=== PATIENT | female | born 1945 | race Caucasian/White ===

== ENCOUNTER 2024-06-23 02:22 | Inpatient (IN) | payer MEDICARE, SELFPAY ==
[2024-06-23] VITALS (14 sets, daily range): BP systolic 102–169; BP diastolic 41–72; PULSE 60–81; RESP 16–20; TEMP 36.7–39.6; O2SAT 81–100; BMI 22.8; BMI 26.4
--- NOTE | 2024-06-23 02:29 | XR_ITS ---
PROCEDURE INFORMATION: Exam: XR Chest Exam date and time: 06/23/2024 2:41 AM Age: 79 years old Clinical indication: Fever; Additional info: AMS fever TECHNIQUE: Imaging protocol: Radiologic exam of the chest. Views: 1 view. COMPARISON: No relevant prior studies available. FINDINGS: Lungs: Prominent lung markings/peribronchial thickening. Pleural spaces: No evidence of pleural effusion or pneumothorax. Heart/Mediastinum: Mild cardiomegaly with mild central pulmonary vascular congestion. Evidence of mediastinal surgery with sternotomy wires, prosthetic valve and CABG. Bones/joints: Chronic degenerative changes in the visualized spine. IMPRESSION: Chronic changes without evidence of an active lung parenchymal lesion.
--- NOTE | 2024-06-23 02:29 | CT_ITS ---
PROCEDURE INFORMATION: Exam: CTA Neck With Contrast Exam date and time: 06/23/2024 2:54 AM Age: 79 years old Clinical indication: Stroke-like symptoms; Altered mental status/memory loss; Additional info: Possible stroke TECHNIQUE: Imaging protocol: Computed tomographic angiography of the neck with contrast. Exam focused on the cervical segments of the vasculature. 3D rendering (Not supervised by radiologist): MIP and/or 3D reconstructed images were created by the technologist. Radiation optimization: All CT scans at this facility use at least one of these dose optimization techniques: automated exposure control; mA and/or kV adjustment per patient size (includes targeted exams where dose is matched to clinical indication); or iterative reconstruction. Contrast material: ISOVUE; Contrast volume: 80 ml; Contrast route: INTRAVENOUS (IV); COMPARISON: CT ANGIO HEAD 06/23/2024 2:54 AM FINDINGS: Thoracic Vessels: Atherosclerotic disease of the visualized aortic arch without aortic aneurysm or dissection. Calcific plaque without significant narrowing at the origin of the neck vessels. . Common Carotid Arteries: Common carotid arteries are without acute flow limiting stenosis. . Cervical Internal Carotid Arteries: Mild to moderate calcific/noncalcific plaque at the carotid bifurcation extending to the carotid bulb without acute flow-limiting stenosis of the cervical internal carotid arteries. No evidence of an aneurysm or a dissection. . Vertebral Arteries: Calcific plaque at the origin of vertebral arteries resulting in chronic narrowing without acute flow limiting stenosis. . Other Structures: Chronic degenerative changes in the visualized spine and shoulder joint(s). Ground-glass opacities, septal and peribronchial thickening in the lung apices with distal airway narrowing. Circumferential wall thickening of the cervical and visualized thoracic esophagus suggestive of reflux disease/esophagitis. IMPRESSION: Chronic atherosclerotic disease without acute flow-limiting stenosis, no occlusion, aneurysm or dissection of the carotid and vertebral arteries in the neck. REFERENCES: NASCET CRITERIA. The degree of stenosis in the cervical segment of the internal carotid artery is based on NASCET criteria. Normal is no stenosis. Mild is less than 50% stenosis. Moderate is 50-69% stenosis. Severe is 70% to 99% stenosis. Total occlusion is no detectable patent lumen.
--- NOTE | 2024-06-23 02:29 | CT_ITS ---
PROCEDURE INFORMATION: Exam: CTA Head With Contrast, Arteriography Exam date and time: 06/23/2024 2:54 AM Age: 79 years old Clinical indication: Stroke-like symptoms; Altered mental status/memory loss; Additional info: Possible stroke TECHNIQUE: Imaging protocol: Computed tomographic angiography of the head with contrast. Exam focused on the arteries. 3D rendering (Not supervised by radiologist): MIP and/or 3D reconstructed images were created by the technologist. Radiation optimization: All CT scans at this facility use at least one of these dose optimization techniques: automated exposure control; mA and/or kV adjustment per patient size (includes targeted exams where dose is matched to clinical indication); or iterative reconstruction. Contrast material: ISOVUE; Contrast volume: 80 ml; Contrast route: INTRAVENOUS (IV); COMPARISON: CT ANGIO HEAD 06/23/2024 2:54 AM FINDINGS: ANTERIOR CIRCULATION: Intracranial internal carotid arteries: Moderately advanced chronic predominantly calcific plaque in the mid-distal ICA resulting in chronic narrowing without acute flow-limiting stenosis. Middle cerebral arteries: M1, M2 and their distal visualized branches are without acute flow limiting stenosis. Anterior cerebral arteries: A1, A2 and their distal visualized branches are without acute flow limiting stenosis. Anterior communicating artery is unremarkable. . POSTERIOR CIRCULATION: Vertebral arteries: Eccentric calcific/noncalcific plaque along the wall(s) of the intracranial LEFT vertebral artery without acute flow limiting stenosis on either side. Basilar artery: The basilar artery and its visualized proximal branches are without acute flow limiting stenosis. Posterior cerebral arteries: P1, P2 and their distal visualized branches are without acute flow limiting stenosis. IMPRESSION: Chronic atherosclerotic disease without acute flow-limiting stenosis or large vessel occlusion. COMMENT: Recommend followup with MRI if persistent/new/worsening symptoms or symptoms unexplained by the current study.
--- NOTE | 2024-06-23 02:29 | CT_ITS ---
PROCEDURE INFORMATION: Exam: CT Head Without Contrast Exam date and time: 06/23/2024 2:52 AM Age: 79 years old Clinical indication: Stroke-like symptoms; Altered mental status/memory loss; Additional info: Possible stroke TECHNIQUE: Imaging protocol: Computed tomography of the head without contrast. Radiation optimization: All CT scans at this facility use at least one of these dose optimization techniques: automated exposure control; mA and/or kV adjustment per patient size (includes targeted exams where dose is matched to clinical indication); or iterative reconstruction. Other technique: STROKE PROTOCOL was implemented. COMPARISON: No relevant prior studies available. FINDINGS: Brain: Chronic microvascular ischemic disease without acute intraparenchymal hemorrhage and no obvious acute ischemic stroke. No intra-or extra-axial fluid collection, no supra-or infratentorial mass, no mass effect or midline shift. Cerebral ventricles: Mildly prominent ventricles, sulci and basal cisterns without evidence of hydrocephalus. Paranasal sinuses: No significant mucoperiosteal thickening in the visualized paranasal sinuses. Mastoid air cells: No mastoid effusion. Bones: Visualized skull bones are grossly normal. Soft tissues: Atherosclerotic calcification of the intracranial internal carotid/vertebral arteries. IMPRESSION: 1. Moderately advanced chronic microvascular disease and generalized atrophy without acute intracranial abnormality. 2. No evidence of acute hemorrhage, mass lesion or obvious acute ischemic infarction. ASSESSMENT: ASPECTS ([place] Stroke Program Early CT Score) is 10. COMMENTS: Possibility of early and/or small acute/subacute ischemic infarct cannot be excluded on a CT scan. Recommend followup with MRI if persistent/worsening focal neurological deficits.
--- NOTE | 2024-06-23 02:32 | ECG_ITS ---
APPROVED REPORT Exam: Resting ECG HR:78 bpm ECG Measurements Heart Rate 78 AXES MA 146 P 54 QRSd 102 QRS 59 QT 361 T 58 QTc 394 Conclusion SINUS RHYTHM INCOMPLETE RIGHT BUNDLE BRANCH BLOCK [90+ ms QRS DURATION, TERMINAL R IN V1/V2, 40+ ms S IN I/aVL/V4/V5/V6] No STEMI Electronically signed by : HANNA LUO, 06/23/2024 05:17:43
--- NOTE | 2024-06-23 02:42 | ED_ITS ---
Discharge Plan Disposition Chief Complaint: Altered Mental Status Clinical Impressions Clinical Impression: Altered mental status, Fever, Kidney dysfunction Discharge ED Provider: Ivelisse Mcgregor Adult HPI General Chief complaint: Altered Mental Status Stated complaint: AMS Time Seen by Provider: 06/23/24 02:25 Mode of Arrival: EMS Source of Information: Patient and EMS Limitations: Altered Mental Status Description of Symptoms (Recalled from ER Triage Doc. by RN): AMS since at least 1700 when patient went to [facility]. Patient family told EMS that she has become increasingly confused/disoriented. She will not follow commands and is only oriented to self. History of Present Illness HPI narrative: 79-year-old female presents to the ER for concerns of altered mental status. Patient reportedly has been confused all day and around 5 PM EMS was called for her confusion. Patient was taken to [facility] where she reportedly received a workup for urinary tract infection and was discharged. Family reports the patient has become increasingly confused and disoriented, not following commands, only oriented to self. EMS reports they were initially concerned about her blood glucose because it had been reportedly abnormal earlier in the day, however with them it was in the 160s. 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 Patient does not report pain anywhere, she only partially follows commands. She denies any nausea, vomiting, chest pain, or painful urination. EMS reports patient had poor oxygen saturation on room air, only being in the low 90s so they placed her on 2 L nasal cannula. She does not wear oxygen at home. Patient is a poor historian and does not provide any other information. Patient's son presented to bedside shortly after patient's arrival and stated patient had been slightly off all day and around 6 PM was taken to outside hospital. He states he brought her home approximately 1 hour prior to her arrival in our ER, and when he went to get her out of the truck, she was not using her legs correctly, she was very weak and more confused. That is when he called for EMS transport. He reports patient has not had any other symptoms that he knows of but he is concerned about her dramatic blood sugar swings from the 100s to the upper 200s which is abnormal for her. Son also provides history that patient has a history of CKD, 5 vessel bypass, diabetes. There was no sudden onset of symptoms, patient has been on a gradual decline all day. Related Data Allergies Allergy/AdvReac Type Severity Reaction Status Date / Time No Known Allergies Allergy Verified 06/23/24 02:41 [facility] Disclaimer: The information contained in this section may have been updated after the patient was seen, as this information can be updated by other users. Social History Smoking Status: Never smoker alcohol intake: never current occupational status: retired Travel in the last 8 weeks: None ROS Obtained: Yes unobtainable due to mental status Physical Exam General General appearance: alert and in no apparent distress Comment: Ill-appearing but not in extremis Head Head exam: atraumatic and normocephalic Eye Eye exam: Present PERRL, EOMI and other (No obvious visual field deficits but exam is limited due to patient's participation) ENT ENT exam: Present mucous membranes moist Neck Neck exam: Present normal inspection and full ROM; Absent tenderness or lymphadenopathy Chest Chest inspection: Present symmetric chest wall rise; Absent tenderness Respiratory Respiratory exam: Absent normal lung sounds bilaterally (Diminished throughout but no wheezing or crackles), respiratory distress, wheezes or stridor Cardiovascular Cardiovascular exam: Present regular rate and normal rhythm Abdominal Exam Abdominal exam: Present soft; Absent distention, tenderness, guarding or rebound Extremities Exam Extremities exam: Present full ROM and edema (1+ bilateral lower extremity pitting edema) Back Exam Back exam: Absent tenderness Neurological Exam Neurological exam: Present alert, motor sensory deficit (No sensory deficit, patient has poor eyebrow raise, will not follow commands to squeeze her eyes shut, does not have any lower facial droop appreciated, no drift in the upper extremities or weakness, ) and other (she does not respond to commands in the left lower extremity well however does respond equally in the lower extremities to painful stimuli, NIH scoring is limited due to patient's altered cognition, her score is a minimum 5, however patient will not participate fully in visual exam, or ataxia exam); Absent oriented X3 (Oriented to self only on arrival) Psychiatric Psychiatric exam: Present normal affect and normal mood Skin Skin exam: Present warm and dry Medical Decision Making Medical Records Screening: Per USPSTF and CDC recommendations, given the prevalence of disease in our region, it is our hospital?s policy to screen for HIV and viral Hepatitis for all patients aged 18 and over and those with ongoing risk factors. Elan Inquiry Pt receiving controlled substance: No Vital Signs: 06/23/24 02:30 06/23/24 02:36 06/23/24 03:17 Temperature 103.2 F H Temperature Source Oral Pulse Rate Pulse Rate [Right Brachial] 81 Respiratory Rate 18 Blood Pressure 169/52 H 165/54 H Blood Pressure [Right Arm] 163/50 H Blood Pressure Mean 91 91 Blood Pressure Mean [Right Arm] 87 Blood Pressure Source Blood Pressure Source [Right Arm] Automatic Cuff Blood Pressure Position 02 Sat by Pulse Oximetry 81 L Oxygen Delivery Method Room Air Oxygen Flow Rate (LPM) 06/23/24 03:55 06/23/24 04:00 06/23/24 04:11 Temperature 99.0 F Temperature Source Oral Pulse Rate 75 Pulse Rate [Right Brachial] Respiratory Rate 20 Blood Pressure 134/47 L 137/45 L 137/45 L Blood Pressure [Right Arm] Blood Pressure Mean 76 75 Blood Pressure Mean [Right Arm] Blood Pressure Source Automatic Cuff Blood Pressure Source [Right Arm] Blood Pressure Position Supine 02 Sat by Pulse Oximetry 95 Oxygen Delivery Method Nasal Cannula Oxygen Flow Rate (LPM) 2 Lab Data Lab Results 06/23/24 02:29: VBG pH 7.38, VBG pCO2 35.6, VBG pO2 46.2 H, VBG HCO3 20.5 L, VBG Total CO2 21.6 L, VBG O2 Saturation 82.1 H, VBG Base Excess -4.6 L, VBG Lactic Acid 1.9 06/23/24 02:31: WBC 3.5 L, RBC 3.40 L, Hgb 11.2 L, Hct 33.5 L, MCV 98.5, MCH 32.9 H, MCHC 33.3, RDW 14.7, Plt Count 167, MPV 8.0, Neut % (Auto) 92.9 H, Lymph % (Auto) 4.2 L, [place] % (Auto) 2.0, Eos % (Auto) 0.3, Baso % (Auto) 0.5, Neut # (Auto) 3.2, Lymph # (Auto) 0.2 L, [place] # (Auto) 0.1, Eos # (Auto) 0.0, Baso # (Auto) 0.0, Total Counted 100, Neutrophils % (Manual) 93 H, Lymphocytes % (Manual) 3 L, Monocytes % (Manual) 4, Platelet Estimate Normal, RBC Morphology Normal, PT 10.3, INR 0.91, APTT 23.2, Sodium 136, Potassium 4.5, Chloride 106, C arbon Dioxide 20 L, Anion Gap 14.5, BUN 38 H, Creatinine 1.90 H, Estimated Creat Clear 25, Estimated GFR 25 L, Est GFR ( Amer) 31 L, Glucose 161 H, Lactate 1.3, Calcium 9.2, Total Bilirubin 0.9, AST 73 H, ALT 45, Alkaline Phosphatase 76, Troponin I 0.03, NT-Pro-B Natriuret Pep 8290 H, Total Protein 6.2 L, Albumin 3.8, Globulin 2.4, Albumin/Globulin Ratio 1.6, Triglycerides 98, Cholesterol 117 L, LDL Cholesterol Direct 37.84 L, VLDL Cholesterol 20, HDL Cholesterol 59, Cholesterol/HDL Ratio 2.0, Plasma/Serum Alcohol < 10 06/23/24 03:10: Urine Color Yellow, Urine Appearance Clear, Urine pH 5.5, Ur Specific [place] 1.025, Urine Protein 2+ A, Urine Glucose (UA) Negative, Urine Ketones 1+, Urine Blood 1+ A, Urine Nitrate Negative, Urine Bilirubin 1+ A, Urine Urobilinogen 0.2, Ur Leukocyte Esterase Trace, Urine RBC 5-10, Urine WBC 10-20, Ur Squamous Epith Cells 5-10, Urine Bacteria 1+, Urine Mucus Trace 06/23/24 02:31 06/23/24 02:31 Orders (Tests/Meds): ED MEDICATIONS Generic Name Dose Route Start Last Admin Trade Name Freq PRN Reason Stop Dose Admin Miscellaneous 1 each 06/23/24 02:30 Vancomycin Consult Request NOTAPPLIC 07/23/24 02:29 CONSULT [facility]Y [facility] Sodium Chloride 10 ml 06/23/24 02:29 Sodium Chloride 0.9% 10ml Flush Syringe IV 07/23/24 02:28 NEEDED PRN Maintain IV Site Sodium Chloride 10 ml 06/23/24 03:02 06/23/24 03:04 Sodium Chloride 0.9% 10ml Syr (Rad Only) IV 07/23/24 03:01 10 ml NEEDED PRN Administration Maintain IV Site Discontinued Medications Generic Name Dose Route Start Last Admin Trade Name Freq PRN Reason Stop Dose Admin Acetaminophen 1,000 mg 06/23/24 02:29 06/23/24 02:57 Acetaminophen 1,000mg/100ml Vial IV 06/23/24 02:30 1,000 mg ONCE ONE Administration Lactated Ringer's 1,000 mls @ 999 mls/hr 06/23/24 02:29 06/23/24 02:57 Lactated Ringer's 1000 Ml Bag IV 06/23/24 03:29 999 mls/hr .Q1H1M ONE Administration Piperacillin Sod/Tazobactam 100 mls @ 200 mls/hr 06/23/24 02:30 06/23/24 03:51 Sod 4.5 gm/ Sodium Chloride IV 06/23/24 02:59 200 mls/hr ONCE ONE Administration Vancomycin/PEG/NADA/Lysine/Water 1.25 gm in 250 mls @ 125 mls/hr 06/23/24 02:45 06/23/24 03:40 Vancomycin 1.25gm/250ml (Peg) Premix IV 06/23/24 04:44 125 mls/hr ONCE ONE Administration Iopamidol 80 ml 06/23/24 03:02 06/23/24 03:04 Iopamidol-370 (76%);100ml Bottle IV 06/23/24 03:03 80 ml ONCE ONE Administration Sodium Chloride 50 ml 06/23/24 03:02 06/23/24 03:04 0.9 % Sodium Chloride 50 Ml Vial IV 06/23/24 03:03 50 ml ONCE ONE Administration ORDERS Category Date Time Status CT angio head Stat Cat Scan 06/23/24 02:[address] angio neck Stat Cat Scan 06/23/24 02:[address] head/brain wo con Stat Cat Scan 06/23/24 02:29 Completed CXR --portable [XR chest portable] Stat Exams 06/23/24 02:29 Completed Activated Partial Thrombo Time Stat Lab 06/23/24 02:31 Completed BNP [NT Pro Brain Natriuretic Pep.] Stat Lab 06/23/24 02:31 Completed Complete Blood Count Auto Diff Stat Lab 06/23/24 02:31 Completed Comprehensive Metabolic Panel Stat Lab 06/23/24 02:31 Completed Drug Screen,Urine Stat Lab 06/23/24 03:10 Received Ethyl Alcohol Stat Lab 06/23/24 02:31 Completed Full Resp Panel w/COVID (H) Routine Lab 06/23/24 03:18 Received Lactic Acid Stat Lab 06/23/24 02:31 Completed Lipid Panel Stat Lab 06/23/24 02:31 Completed Prothrombin Time INR Stat Lab 06/23/24 02:31 Completed Troponin I Q3H Lab 06/23/24 05:30 Ordered Troponin I Q3H Lab 06/23/24 08:30 Ordered Troponin I Stat Lab 06/23/24 02:31 Completed Urinalysis and Microscopic Stat Lab 06/23/24 03:10 Completed Blood Culture Stat Micro 06/23/24 03:16 Received Urine Culture Stat Micro 06/23/24 03:10 Received VBG [Venous Blood Gas] Stat RT 06/23/24 02:29 Completed ECG Request Stat Y 06/23/24 02:29 Ordered Medical Decision Narrative: In summary, this 79-year-old female with comorbidities as described in HPI presents to the emergency department today with weakness, confusion. On initial evaluation patient is febrile, tachypneic, hypoxic with diminished breath sounds throughout, altered mental status, GCS 14, NIH difficult to assess because patient is not following commands throughout but is at least a 5 with slight, nonspecific left-sided deficits, no exact last known normal but sometime in the last 24 hours according to family will not stroke alert due to unknown exact last normal/onset of symptoms. Remainder of exam is reassuring. Differential diagnosis includes but is not limited to stroke, intracranial bleed, sepsis, anemia, electrolyte abnormality, kidney dysfunction, urinary tract infection, viral infection, cardiac abnormality such as ACS, fluid overload, hypercarbia, intoxication. Based on these concerns, I ordered broad workup including serum labs, stroke protocol CT imaging including angiography, urine studies. ECG personally interpreted demonstrates normal sinus rhythm, rate 78, normal axis, normal MA and QTc, no STEMI, patient does have a incomplete right bundle branch block. Because patient is febrile, tachypneic, hypoxic, and altered I am concerned for sepsis. Because of her peripheral edema I am not going to give her a full sepsis bolus but I am starting with 1 L of IV fluids as well as broad-spectrum antibiotics. Labs personally reviewed demonstrate leukopenia with WBC 3.5, anemia with hemoglobin 11.2, platelets normal, CMP notable for kidney dysfunction, unclear what her baseline is since we do not have previous records, VBG pH 7.38 with VBG lactic 1.9, no hypercarbia but there is hypoxia, lactate on chemistry is 1.3, AST 73 with other transaminases normal, nonspecific. Initial troponin 0.03, nonspecific and likely demand related since patient has been febrile, she also has a history of significant cardiac disease. This may be her baseline. BNP 8290 concerning for fluid overload which is evidenced by mild peripheral edema and hypoxia with patient requiring 2 L nasal cannula. UA not convincing for infection however there are 10-20 WBCs with 1+ bacteria but negative nitrates. EtOH negative. UDS unavailable at this time due to machine failure. XR personally interpreted demonstrates no lobar infiltrate or pleural effusion, no pneumothorax. Mild pulmonary vascular congestion. See radiology read. CT imaging personally interpreted demonstrate no acute intracranial abnormality such as bleed, mass, or midline shift. I also do not appreciate large vessel occlusion on angiography. See radiology reads for final interpreted. On reassessment, patient has dramatically improved, she is no longer febrile, she is saturating well on 2 L nasal cannula, she is much more alert and oriented, GCS 15 now, her only point of confusion is which hospital she was at. Her NIH is now 0. I believe her abnormal neuroexam was related to fever and infection, it is possible she had a TIA however this is less likely given her gradual decline through the day and improvement with fluids and antipyretics with antibiotics. I believe patient is appropriate for admission to our facility for continued monitoring and management while additional workup is pending including cultures. Family and patient are in agreement with this plan. I discussed this case with the hospitalist including her labs, imaging findings, neurochanges. He has graciously accepted the patient for admission. Critical Care Critical Care Time Critical Care Time: Yes Attestation: On 06/23/24, the high probability of a clinically significant, sudden or life threatening deterioration of the following system(s) (neuro, cardiac) required my full and direct attention, intervention and personal management. The time I documented below is in addition to time spent performing reported procedures but includes the following listed in this critical care notation. Total Time Total Critical Care Time: 35
--- NOTE | 2024-06-23 02:43 | PC.NURSE ---
Pt to CT scan via stretcher
[2024-06-23 02:44] LABS: Basophils % 0.5 % (0.1-2.0); Eosinophils % 0.3 % (0.1-12.0); Hematocrit 33.5 % (37.0-47.0); Hemoglobin 11.2 g/dL (12.2-16.2); Lymphocytes # 0.2 K/mm3 (0.7-4.5); Lymphocytes % 4.2 % (10-50); Mean Corpuscular HGB Conc 33.3 g/dL (31.8-35.4); Mean Corpuscular Hemoglobin 32.9 pg (27.0-31.2); Mean Corpuscular Volume 98.5 fl (81-99); Monocytes # 0.1 K/mm3 (0.1-1.0); Neutrophils # 3.2 K/mm3 (1.8-7.8); Neutrophils % 92.9 % (37.0-80.0); Platelet Count 167 K/mm3 (142-424); Red Cell Distribution Width 14.7 % (11.5-17.5); White Blood Count 3.5 K/mm3 (4.8-10.8)
[2024-06-23 02:46] LABS: MANUAL DIFFERENTIAL MANUAL DIFFERENTIAL (MANUAL DIFF)
[2024-06-23 02:48] LABS: Lactate Venous 1.9 mmol/L (0.4-2.0); VBG Base Excess -4.6 mmol/L (-2.4-2.3); VBG HCO3 20.5 mmol/L (23-30); VBG Oxygen Saturation 82.1 % (50-70); VBG PCO2 35.6 mmol/L (35-51); VBG PH 7.38 mmol/L (7.31-7.41); VBG PO2 46.2 mmol/L (28-40); VBG Total CO2 21.6 mmol/L (23-27)
[2024-06-23 02:49] LABS: Alanine Aminotransferase 45 U/L (12-78); Albumin Level 3.8 g/dl (3.5-5.0); Albumin/Globulin Ratio 1.6 (1.1-1.8); Alkaline Phosphatase 76 U/L (38-126); Anion Gap 14.5 mEq/L (5-15); Aspartate Amino Transferase 73 U/L (14-36); Bilirubin,Total 0.9 mg/dl (0.2-1.3); Blood Urea Nitrogen 38 mg/dl (7-17); Calcium 9.2 mg/dl (8.4-10.2); Carbon Dioxide 20 mmol/L (22.0-30.0); Chloride 106 mmol/L (98-107); Cholesterol 117 mg/dl (140-200); Creatinine Clearance Estimated 25 mL/min (50-200); Estimated Glomerular Filt Rate 25 ml/min (>60); GFR (African American) 31 ML/MIN (>60); Globulin 2.4 g/dL (1.3-3.2); Glucose 161 mg/dl (74-100); HDL Cholesterol 59 mg/dl (40-60); Potassium 4.5 mmoL/L (3.5-5.1); Sodium 136 mmol/L (136-145); Total Protein,Serum 6.2 g/dl (6.3-8.2); Triglycerides 98 mg/dl (30-150); VLDL Cholesterol 20 mg/dL (0-40)
[2024-06-23 02:50] LABS: Activated Partial Thrombo Time 23.2 seconds (22.8-30.6); INR 0.91 (0.9-1.1); Prothrombin Time 10.3 seconds (10.1-12.5)
[2024-06-23 02:51] LABS: Ethyl Alcohol < 10 mg/dl (0-10)
[2024-06-23 02:52] LABS: Lactic Acid 1.3 mmol/L (0.7-2.1)
--- NOTE | 2024-06-23 02:53 | PC.NURSE ---
PC to to [facility] spoke to [facility] records from 06/22 visit
[2024-06-23] MEDS: ACETAMINOPHEN 1,000MG/100ML VIAL 1000 MG IV (02:57)
[2024-06-23] MEDS: LACTATED RINGERS 1000ML 1,000 ML 999 ML IV (02:57)
[2024-06-23 03:00] LABS: Direct LDL Cholesterol 37.84 mg/dL (100-129)
[2024-06-23 03:02] LABS: Troponin I 0.03 ng/ml (0.00-0.034)
[2024-06-23] MEDS: 0.9 % SODIUM CHLORIDE 50 ML VIAL IV (03:04)
[2024-06-23] MEDS: IOPAMIDOL-370 (76%);100ML BOTTLE 80 ML IV (03:04)
[2024-06-23] MEDS: SODIUM CHLORIDE 0.9% 10ML SYR (RAD ONLY) 10 ML IV (03:04)
[2024-06-23 03:10] LABS: Lymphocytes % 3 % (10-50); Monocytes % 4 % (2-9); Neutrophils % 93 % (42-76); Platelet Estimate Normal; RBC Morphology Normal; Total Cells Counted 100
[2024-06-23 03:14] LABS: Appearance,Urine CLEAR (Clear); Blood, Urine 1+ (Negative); Color,Urine YELLOW (Yellow); Glucose,Urine (UA) Negative (Negative); Ketones,Urine 1+ (Negative); Leukocyte Esterase,Urine TRACE (Negative); Microscopic, Urine URINE MICROSCOPIC (MICROSCOPIC); Nitrate,Urine Negative (Negative); PH,Urine 5.5 (5.0-8.5); Protein,Urine 2+ (Negative); Specific Gravity, Urine 1.025 (1.005-1.030); Urobilinogen,Urine 0.2 EU/dl (0.2)
[2024-06-23 03:19] LABS: Bilirubin,Urine 1+ (Negative)
--- NOTE | 2024-06-23 03:19 | PC.NURSE ---
speaking with GUNNAR
[2024-06-23 03:20] LABS: NT Pro Brain Natriuretic Pep. 8290 pg/mL (0-450)
[2024-06-23 03:24] LABS: Adenovirus,PCR Not Detected (NotDetected); Bordetella Pertussis Not Detected (NotDetected); Chlamydophila Pneumoniae, PCR Not Detected (NotDetected); Coronavirus 19, PCR Not Detected (NotDetected); Coronavirus 229E Not Detected (NotDetected); Coronavirus NL63 Not Detected (NotDetected); Coronavirus OC43 Not Detected (NotDetected); Coronovirus HKU1,PCR Not Detected (NotDetected); Human Metapneumovirus Not Detected (NotDetected); Influenza A, PCR Not Detected (NotDetected); Influenza AH1, 2009 Not Detected (NotDetected); Influenza AH1, PCR Not Detected (NotDetected); Influenza AH3,PCR Not Detected (NotDetected); Influenza B, PCR Not Detected (NotDetected); Mycoplasma Pneumoniae, PCR Not Detected (NotDetected); Parainfluenza 1, PCR Not Detected (NotDetected); Parainfluenza 2, PCR Not Detected (NotDetected); Parainfluenza 3, PCR Not Detected (NotDetected); Parainfluenza 4, PCR Not Detected (NotDetected); Respiratory Syncytial Virus Not Detected (NotDetected); Rhinovirus/Enterovirus Not Detected (NotDetected)
--- NOTE | 2024-06-23 03:24 | PC.NURSE ---
Dr. Mcgregor states due to pts edema she will not be giving the full sepsis bolus.
[2024-06-23 03:31] LABS: Bacteria,Urine 1+ /lpf; Mucus,Urine Trace /lpf
[2024-06-23] MEDS: VANCOMYCIN/WATER FOR INJ (PEG) 1.25 GM/250 ML PIGGYBACK IV (03:40)
[2024-06-23] MEDS: PIPERACILLIN/TAZO 4.5 GM in 0.9 % SODIUM CHLORIDE 100 ML IV (03:51)
--- NOTE | 2024-06-23 04:09 | PC.NURSE ---
supervisor coating at [facility] notified of need for medical records.
--- NOTE | 2024-06-23 04:22 | PC.NURSE ---
EMS stated patients blood glucose was checked and was 160 while en route to hospital
--- NOTE | 2024-06-23 04:46 | PC.NURSE ---
face sheet faxed to [facility], confirmation received
--- NOTE | 2024-06-23 05:03 | P.HP_ITS ---
History of Present Illness *Admission Date: 06/23/24 *Reason for visit:: Altered mental status and fever *History of present illness: This 79-year-old lady with a known history of diabetes and status post CABG began to have weakness then confusion today.. Her son then took her to another hospital where she was evaluated in the ER and released. When he got home she was much more confused unable to get out of the truck legs did not work. So he called EMS and she was brought here. On arrival the patient was found to have a temperature greater than 103 and quite confused only knew who she was. Workup was done and patient was given acetaminophen a liter of fluid and an antibiotic. After fever came down patient was much more of her normal self. The ER doctor also had a CT scan of the head chest x-ray done. There was no unusual findings except for age related. Also noted patient is normally on room air but it required 2 L by EMS as her saturations remained in the low 90s, we have continued this here in the ER. Also noted the patient is a diabetic and since she has become ill her blood sugars have become wildly variable and much higher per the son . Also noting that the patient has elevated creatinine and BUN. Patient also received Vanco and Zosyn in the emergency room., Having conferred with the ER physician do not feel that this is stroke related. But is due to an infection. Source of the infection is not fully clear as to the urinary tract is does not seem to be that severe. But patient also requiring oxygen which she never had before. I do agree with the emergency room physician I will except the patient and admit to the floor to continue antibiotic. Then also to reevaluate in case MRI of the brain is needed. [facility] Disclaimer: The information contained in this section may have been updated after the patient was seen, as this information can be updated by other users. Medical History (Updated 06/23/24 @ 20:06 by Jose Daniel Graves MD) Elevated troponin Urinary tract infection Altered mental status Coronary artery disease (HFpEF) heart failure with preserved ejection fraction Diabetes mellitus Coronary artery disease involving coronary bypass graft Surgical History (Updated 06/23/24 @ 13:20 by Vita Snow APRN) H/O mitral valve repair History of five vessel coronary artery bypass Social History (Updated 06/23/24 @ 04:46 by Ivelisse Mcgregor MD) Smoking Status: Never smoker alcohol intake: never current occupational status: retired Travel in the last 8 weeks: None Review of Systems Review of Systems Review of systems:: unable to obtain Review of systems (narrative): Patient is in a deep sleep and the family member that was with her has left. Constitutional Constitutional: Reports as per HPI Eyes Eyes: Reports as per HPI ENT Ears, Nose, Mouth, and Throat: Reports as per HPI *Cardiovascular Cardiovascular: Reports as per HPI *Respiratory Respiratory: Reports as per HPI *Gastrointestinal Gastrointestinal: Reports as per HPI *Genitourinary Genitourinary: Reports as per HPI *Musculoskeletal Musculoskeletal: Reports as per HPI Integumentary/Breasts Skin/Breast: Reports as per HPI *Neurologic Comments: Confusion Psychiatric Comments: Confusion altered mental state Endocrine Endocrine: Reports as per HPI Hematologic/Lymphatic Hematologic/Lymphatic: Reports as per HPI Allergic/Immunologic Allergic/Immunologic: Reports as per HPI Meds Home Medications and Allergies Home Medications ?Medication ?Instructions ?Recorded ?Confirmed ?Type allopurinol 300 mg tablet 300 mg PO DAILY 06/23/24 06/23/24 History linaclotide 72 mcg capsule 72 mcg PO DAILY 06/23/24 06/23/24 History (Linzess) metoprolol succinate 25 mg 12.5 mg PO DAILY 06/23/24 06/23/24 History tablet,extended release 24 hr pantoprazole 40 mg tablet,delayed 40 mg PO HS 06/23/24 06/23/24 History release New Prescriptions to Start Prescriptions: Allergies Allergy/AdvReac Type Severity Reaction Status Date / Time No Known Allergies Allergy Verified 06/23/24 02:41 Exam Data for Last 24 hours Vital signs and Labs for Last 24 Hours: Temp Pulse Resp BP Pulse Ox O2 Del Method O2 Flow Rate 99.0 F 72 20 120/72 95 Nasal Cannula 2 06/23/24 04:39 06/23/24 04:39 06/23/24 04:39 06/23/24 04:39 06/23/24 04:11 06/23/24 04:39 06/23/24 04:39 Laboratory Results - last 24 hr 06/23/24 02:29: VBG pH 7.38, VBG pCO2 35.6, VBG pO2 46.2 H, VBG HCO3 20.5 L, VBG Total CO2 21.6 L, VBG O2 Saturation 82.1 H, VBG Base Excess -4.6 L, VBG Lactic Acid 1.9 06/23/24 02:31: WBC 3.5 L, RBC 3.40 L, Hgb 11.2 L, Hct 33.5 L, MCV 98.5, MCH 32.9 H, MCHC 33.3, RDW 14.7, Plt Count 167, MPV 8.0, Neut % (Auto) 92.9 H, Lymph % (Auto) 4.2 L, Early % (Auto) 2.0, Eos % (Auto) 0.3, Baso % (Auto) 0.5, Neut # (Auto) 3.2, Lymph # (Auto) 0.2 L, Early # (Auto) 0.1, Eos # (Auto) 0.0, Baso # (Auto) 0.0, Total Counted 100, Neutrophils % (Manual) 93 H, Lymphocytes % (Manual) 3 L, Monocytes % (Manual) 4, Platelet Estimate Normal, RBC Morphology Normal, PT 10.3, INR 0.91, APTT 23.2, Sodium 136, Potassium 4.5, Chloride 106, Carbon Dioxide 20 L, Anion Gap 14.5, BUN 38 H, Creatinine 1.90 H, Estimated Creat Clear 25, Estimated GFR 25 L, Est GFR ( Amer) 31 L, Glucose 161 H, Lactate 1.3, Calcium 9.2, Total Bilirubin 0.9, AST 73 H, ALT 45, Alkaline Phosphatase 76, Troponin I 0.03, NT-Pro-B Natriuret Pep 8290 H, Total Protein 6.2 L, Albumin 3.8, Globulin 2.4, Albumin/Globulin Ratio 1.6, Triglycerides 98, Cholesterol 117 L, LDL Cholesterol Direct 37.84 L, VLDL Cholesterol 20, HDL Cholesterol 59, Cholesterol/HDL Ratio 2.0, Plasma/Serum Alcohol < 10 06/23/24 03:10: Urine Color Yellow, Urine Appearance Clear, Urine pH 5.5, Ur Specific [place] 1.025, Urine Protein 2+ A, Urine Glucose (UA) Negative, Urine Ketones 1+, Urine Blood 1+ A, Urine Nitrate Negative, Urine Bilirubin 1+ A, Urine Urobilinogen 0.2, Ur Leukocyte Esterase Trace, Urine RBC 5-10, Urine WBC 10-20, Ur Squamous Epith Cells 5-10, Urine Bacteria 1+, Urine Mucus Trace 11/11/24 03:18: Chlamy pneumoniae PCR Not detected, Adenovirus (PCR) Not detected, B. pertussis DNA (PCR) Not detected, Coronavirus OC43 (PCR) Not detected, Coronavirus HKU1 (PCR) Not detected, Coronavirus 229E (PCR) Not detected, SARS-CoV-2 (PCR) Not detected, Coronavirus NL63 (PCR) Not detected, Human Metapneumovir PCR Not detected, Influenza A (H1) PCR Not detected, Influ A (H1N1/09) PCR Not detected, Influenza A (H3) PCR Not detected, Influenza Type A (PCR) Not detected, Influenza Type B (PCR) Not detected, M. pneumoniae (PCR) Not detected, Parainfluenza 1 (PCR) Not detected, Parainfluenza 2 (PCR) Not detected, Parainfluenza 3 (PCR) Not detected, Parainfluenza 4 (PCR) Not detected, RSV (PCR) Not detected, Entero/Rhino (PCR) Not detected I & O for Last 24 hours: Intake & Output 06/20/24 06/21/24 06/22/24 06/23/24 23:59 23:59 23:59 23:59 Weight 68.039 kg Radiology Reports for the Last 24 Hours: I Reviewed chest x-ray and CT a of the head. No acute findings on either Constitutional Constitutional: thin and somnolent Comments: Patient is sleeping at this time regular rate of respiration., I did not feel the need to wake her during my exam *Routine HEENT Exam Head: Present normocephalic and atraumatic Eye: Present other ENT: Present mucous membranes moist *Routine Neck Exam Neck: Present supple Routine Chest/Breast/Axilla Exam Comments: No abnormalities of chest wall found *Routine Respiratory Exam Respiratory: Present CTA bilaterally, normal respiratory effort and symmetric chest movement Comments: Patient is asleep with a slight snore but regular respiratory rate slightly elevated at around 28 breaths/min *Routine Cardiovascular Exam Cardiovascular: Present RRR, Normal S1 and Normal S2 *Routine Abdominal Exam Abdominal: Present soft *Routine Rectal Exam Rectal:: deferred *Routine Genitalia Exam Genitalia:: deferred *Routine Extremities Exam Extremities: Present vascular access Comments: No signs of injury or any significant edema found in arms or legs Routine Back/Spine/Pelvis Exam Comments: Patient was asleep, but from report from ER physician and nurses there was no sign of any back injury or significant problems. *Routine Skin Exam Skin: Present intact, dry and warm *Routine Neurological Exam Comments: Sleeping during the exam Routine Psychiatric Exam Comments: Deferred at this time., Per the ER physician patient was quite confused when she came in once fever was brought down to fluids given patient was back to her normal self this was confirmed by her son H&P: Result Impressions 1. Altered mental status with fever, no clear indication of which infection would be causing this. But with the fever down patient returned to her baseline mentally 2. Diabetes mellitus 3. UTI 4. Decreased WBCs Imaging and Cardiology Chest x-ray: Status: image reviewed by me Additional comments: Examined the chest x-ray no significant infiltrates were found cardiac slightly enlarged with metallic sutures in place from CABG CT scan - head: Status: image reviewed by me Additional comments: Examined the CT scan of the head age-related changes noted, significant degenerative disc disease and cervical spine, no significant impingement upon spinal cord seen Assessment and Plan *Assessment and plan (1) Sepsis: Status: Acute Category: Medical Code(s): A41.9 - Sepsis, unspecified organism (2) Urinary tract infection: Status: Acute Qualifiers: Hematuria presence: without hematuria Urinary tract infection type: acute cystitis Qualified Code(s): N30.00 - Acute cystitis without hematuria Category: Medical Code(s): N39.0 - Urinary tract infection, site not specified (3) Encephalopathy acute: Status: Acute Category: Medical Code(s): G93.40 - Encephalopathy, unspecified (4) Fever: Status: Acute Qualifiers: Fever type: unspecified Qualified Code(s): R50.9 - Fever, unspecified Category: Medical Code(s): R50.9 - Fever, unspecified (5) (HFpEF) heart failure with preserved ejection fraction: Status: Acute Qualifiers: Heart failure chronicity: acute Qualified Code(s): I50.31 - Acute diastolic (congestive) heart failure Category: Medical Code(s): I50.30 - Unspecified diastolic (congestive) heart failure (6) Low oxygen saturation: Status: Acute Category: Medical Code(s): R79.81 - Abnormal blood-gas level (7) Kidney dysfunction: Status: Acute Category: Medical Code(s): N28.9 - Disorder of kidney and ureter, unspecified (8) Diabetes mellitus: Status: Acute Qualifiers: Chronic kidney disease stage: stage 2 (mild) Diabetes mellitus complication detail: with chronic kidney disease Diabetes mellitus complication status: with kidney complications Diabetes mellitus fdc insulin use: with fdc use Diabetes mellitus type: type 2 Qualified Code(s): E11.22 - Type 2 diabetes mellitus with diabetic chronic kidney disease; N18.2 - Chronic kidney disease, stage 2 (mild); Z79.4 - detention (current) use of insulin Category: Medical Code(s): E11.9 - Type 2 diabetes mellitus without complications Plan Presented with confusion and fever. Concern for UTI. Case discussed with ER physician, request admission for further management and therapy eval. Medicine agreed to admit. Problems addressed as follows: Sepsis Encephalopathy Urinary tract infection ANILA Fever -Initial VBG with normal blood gas 7.38, pCO2 36. - Initiated on vancomycin and Zosyn given altered mental status. Continue Zosyn 3.375 g every 8 hours. - White count low at 3.5, febrile at 103, altered mental status, urine grossly abnormal concerning for UTI. Meet sepsis criteria. -Urine grossly abnormal with trace leuk esterase, 10-20 whites and 1+ bacteria. Blood culture and urine culture pending. Initiated on empiric antibiotics with Vanco and Zosyn due to sepsis. -Kidney function abnormal BUN 38, creatinine 1.9. -Repeat CBC, CMP, magnesium ordered for the morning. Acute exacerbation of heart failure preserved ejection fraction History of CABG x 5 - BNP elevated 8200. Serial troponins pending. Initial troponin 0.03. -Initiate diuresis with Lasix 40 mg IV x 1. -On oxygen on arrival, no oxygen at baseline. On 2 L. Wean as tolerated. Goal sats greater 90%. -DuoNeb 3 times a day Full code Diabetic diet Lovenox 40 mg subcu daily Rounded on patient after nurse practitioner. Personally examined and interviewed patient. Agree with exam findings and care plan as documented. Updates made to plan above
--- NOTE | 2024-06-23 05:18 | PC.NURSE ---
Patient arrived to floor via stretcher from ED at 05:15.
[2024-06-23 05:20] LABS: Amphetamine/Metha Screen,Urine Negative ng/ml (<1000); Barbiturates Screen,Urine Negative ng/ml (<200); Benzodiazepines Screen,Urine Negative ng/ml (<200); Cannabinoid Screen,Urine Negative ng/ml (<50); Cocaine Screen,Urine Negative ng/ml (<300); Methadone Screen,Urine Negative ng/ml (<300); Opiate Screen,Urine Negative ng/ml (<300); Phencyclidine Screen,Urine Negative ng/ml (<25)
[2024-06-23 06:21] LABS: Basophils % 0.4 % (0.1-2.0); Eosinophils % 0.1 % (0.1-12.0); Hematocrit 29.4 % (37.0-47.0); Lymphocytes # 0.2 K/mm3 (0.7-4.5); Lymphocytes % 2.5 % (10-50); Mean Corpuscular HGB Conc 33.4 g/dL (31.8-35.4); Mean Corpuscular Hemoglobin 33.6 pg (27.0-31.2); Mean Corpuscular Volume 100.7 fl (81-99); Mean Platelet Volume 8.2 fl (7.4-10.4); Monocytes # 0.2 K/mm3 (0.1-1.0); Monocytes % 2.6 % (1.7-9.3); Neutrophils # 8.5 K/mm3 (1.8-7.8); Neutrophils % 94.4 % (37.0-80.0); Platelet Count 132 K/mm3 (142-424); Red Blood Count 2.92 M/mm3 (4.20-5.40); Red Cell Distribution Width 14.8 % (11.5-17.5); White Blood Count 9.1 K/mm3 (4.8-10.8)
[2024-06-23 06:40] LABS: Troponin I 0.09 ng/ml (0.00-0.034)
--- NOTE | 2024-06-23 06:40 | PC.NURSE ---
Patient only alert to slef, cannot tell me any medical history other than she has an implanted insulin pump. Could not complete med rec at this time.
[2024-06-23 06:55] LABS: Alanine Aminotransferase 49 U/L (12-78); Albumin Level 2.7 g/dl (3.5-5.0); Albumin/Globulin Ratio 1.4 (1.1-1.8); Alkaline Phosphatase 74 U/L (38-126); Aspartate Amino Transferase 87 U/L (14-36); Bilirubin,Total 0.9 mg/dl (0.2-1.3); Blood Urea Nitrogen 36 mg/dl (7-17); Calcium 8.2 mg/dl (8.4-10.2); Carbon Dioxide 18 mmol/L (22.0-30.0); Chloride 105 mmol/L (98-107); Creatinine Clearance Estimated 31 mL/min (50-200); Estimated Glomerular Filt Rate 27 ml/min (>60); GFR (African American) 33 ML/MIN (>60); Globulin 1.9 g/dL (1.3-3.2); Glucose 205 mg/dl (74-100); Magnesium 1.9 mg/dl (1.6-2.3); Sodium 135 mmol/L (136-145); Total Protein,Serum 4.6 g/dl (6.3-8.2)
[2024-06-23] MEDS: humaLOG 100 UNITS/ML 10ML VIAL (SSI) SUBCUT ×3 (06:55→16:34)
[2024-06-23 06:56] LABS: Hemoglobin 9.8 g/dL (12.2-16.2)
--- NOTE | 2024-06-23 08:12 | CA_ITS ---
APPROVED REPORT EXAM: Comprehensive 2D, Doppler, and color-flow Echocardiogram Vacuum Caster: Africa Ortega RT(R) Ht: 5 ft 8 in Wt: 174lbs BSA: 1.93 BP: 120/72 mmHg Indications: AMS, fever, CHF evaluation, hx CABG, hx of mitral valve repair/replacement per patient, poor historian as she was in deep sleep, UTI, DM, HTN, HLD, SOB. 2D Dimensions LVEF (Dewitt's) 53.60 % F: 54 - 74 LV Volume 85.00 mL F: 46 - 106 LV Volume Index 44.0 mL/m2 F: 29 - 61 LA Volume 62.50 mL LA Volume Index 32.38 mL/m2 (M/F) 16-34 EF AP4 54.40 % EF AP2 52.4 % EF BP 53.6 % GL Strain -13.3 % M-Mode Dimensions RVDd 3.00 cm (0.9-2.6) LA Diam 4.65 cm (1.9-4.0) LVDd 5.51 cm (3.5-5.7) LVDs 3.95 cm (3.5-5.7) IVSd 0.84 cm (0.6-1.1) PWd 0.80 cm (0.6-1.1) EF (Teich) 54.10% FS 28.30% EDV (Teich) 148.00 mL ESV (Teich) 67.90 mL LV Diastology E Decel Time 260 (160-240 msec) E/A Ratio 1.2 Aortic Valve MASTER Index 1.08 cm2/m2 AoV Peak El. 212.0 (50-130 cm/s) AO Peak GR. 17.90 mmHg AO Mean GR. 8.80 (<5 mmHg) AO VTI 51.5 (18-25 cm) MASTER (VTI) 2.12 (2.5-4.5 cm2) Mitral Valve MV E Max El. 167.0 (40-130 cm/s) MV A Velocity 140.0 (40-130 cm/s) E/A Ratio 1.20 MV PHT 76.0 ms Tricuspid Valve TR P. Velocity 317.00 cm/s RAP Estimate 10.00 mmHg RVSP 50.20 mmHg Left Ventricle The left ventricle is normal size. The left ventricular systolic function is normal. The left ventricular ejection fraction is within the normal range. There is increased LV wall thickness. There is normal LV segmental wall motion. Diastolic function is indeterminate. LVEF is 55%. Right Ventricle Right ventricle is mildly dilated. Right ventricle function is borderline reduced. Atria The left atrium is mildly dilated. The right atrium is mildly dilated. There is no Doppler evidence of interatrial shunt. Aortic Valve The aortic valve opens well. There is no hemodynamically significant aortic stenosis. Mitral Valve s/p MV repair with annuloplasty ring Mean MV gradient is 5 mmHg (HR 62 bpm). Trace central mitral regurgitation. Tricuspid Valve The tricuspid valve leaflets are thin and pliable. Moderate tricuspid regurgitation. RVSP is 40-45 mmHg. Pulmonic Valve The pulmonary valve is normal in structure. Mild pulmonic regurgitation. Great Vessels The aortic root is normal in size. The ascending aorta is not well-visualized. IVC is normal in size and collapses >50% with inspiration. Pericardium There is no pericardial effusion. Other Information Study Quality: Fair Conclusion Normal LV systolic function. Mild RV dilation with borderline reduction in RV function. Mild biatrial dilation. s/p MV repair with annuloplasty ring. Trace central MR. Mean MV gradient 5 mmHg (HR 62 bpm). Moderate TR. Elevated RVSP 40-45 mmHg. Electronically signed by : Valeria Reyes MD 06/23/2024 12:40:17
[2024-06-23] MEDS: PIPERACILLIN/TAZO 3.375 GM in 0.9 % SODIUM CHLORIDE 50 ML IV ×2 (09:28→16:34)
--- NOTE | 2024-06-23 09:33 | HMH.PHAINT1 ---
Pharmacy Intervention Comments: HOME MEDS VERIFIED VIA OUTPATIENT PHARMACY AND PT INTERVIEW
[2024-06-23] MEDS: MAGNESIUM SULFATE IN WATER 2 GM/50 ML PIGGYBACK IV (10:02)
[2024-06-23] MEDS: BUMETANIDE 1MG/4ML VIAL 1 MG IV (10:02)
--- NOTE | 2024-06-23 10:13 | PC.NURSE ---
Dr. Graves at bedside
[2024-06-23 11:08] LABS: POC Glucose,Bedside 184 (70-110)
--- NOTE | 2024-06-23 12:36 | PC.NURSE ---
Cardiology at bedside
--- NOTE | 2024-06-23 13:16 | EXP.CARD.CON ---
History of Present Illness History of Present Illness Consult date: 06/23/24 Requesting physician: Jose Daniel Graves Chief complaint: AMS History of present illness: This is an 79-year-old female who presented to the emergency department with an altered mental status. She has a past medical history of coronary artery disease status post 5 vessel CABG, diabetes, mitral valve repair, CKD. The patient had an altered mental status yesterday and her son took her to another hospital in [facility]. She was diagnosed with a UTI and sent home. The patient's son states that her symptoms worsened when she got home and she was unable to walk. He decided to call EMS and she was brought here to [facility]. On arrival she was found to have a temperature greater than 103 ?F and had an altered mental status. She was given acetaminophen, fluids and antibiotics and the patient's fever improved and her mentation also improved. This morning she is alert and oriented x 3. She denies any chest pain or pressure. She denies any shortness of breath or edema. She denies any fever, chills, nausea, vomiting, diarrhea, PND orthopnea. The patient states that she does not remember what happened at all yesterday. She reports that prior to yesterday she was feeling fine and in her usual state of health. Today she states that she feels well other than just being tired. She states that she is still having some trouble walking and her legs feel really weak. She denies any other complaints today. [facility] Disclaimer: The information contained in this section may have been updated after the patient was seen, as this information can be updated by other users. Medical History (Updated 06/23/24 @ 13:20 by Vita Snow APRN) Elevated troponin Urinary tract infection Altered mental status Coronary artery disease (HFpEF) heart failure with preserved ejection fraction Diabetes mellitus Coronary artery disease involving coronary bypass graft Surgical History (Updated 06/23/24 @ 13:20 by Vita Snow APRN) H/O mitral valve repair History of five vessel coronary artery bypass Social History (Updated 06/23/24 @ 04:46 by Ivelisse Mcgregor MD) Smoking Status: Never smoker alcohol intake: never current occupational status: retired Travel in the last 8 weeks: None Review of Systems Review of Systems Review of systems:: pertinent systems reviewed and negative unless documented below Constitutional Constitutional: Reports system reviewed and no additional complaints, except as documented, Reports fatigue, Reports fever(s), Reports lethargy and Reports weakness Eyes Eyes: Reports system reviewed and no additional complaints, except as documented ENT Ears, Nose, Mouth, and Throat: Reports system reviewed and no additional complaints, except as documented *Cardiovascular Cardiovascular: Reports system reviewed and no additional complaints, except as documented *Respiratory Respiratory: Reports system reviewed and no additional complaints, except as documented *Gastrointestinal Gastrointestinal: Reports system reviewed and no additional complaints, except as documented *Genitourinary Genitourinary: Reports system reviewed and no additional complaints, except as documented *Musculoskeletal Musculoskeletal: Reports system reviewed and no additional complaints, except as documented Integumentary/Breasts Skin/Breast: Reports system reviewed and no additional complaints, except as documented *Neurologic Neurologic: Reports system reviewed and no additional complaints, except as documented and Reports weakness Psychiatric Psychiatric: Reports system reviewed and no additional complaints, except as documented Endocrine Endocrine: Reports system reviewed and no additional complaints, except as documented and Reports fatigue Hematologic/Lymphatic Hematologic/Lymphatic: Reports system reviewed and no additional complaints, except as documented Allergic/Immunologic Allergic/Immunologic: Reports system reviewed and no additional complaints, except as documented Exam Data for Last 24 hours Vital signs and Labs for Last 24 Hours: Temp Pulse Resp BP Pulse Ox O2 Del Method O2 Flow Rate 98.1 F 60 20 102/48 L 95 Room Air 2 06/23/24 08:00 06/23/24 10:14 06/23/24 10:14 06/23/24 08:00 06/23/24 10:14 06/23/24 13:00 06/23/24 08:00 Laboratory Results - last 24 hr 06/23/24 02:29: VBG pH 7.38, VBG pCO2 35.6, VBG pO2 46.2 H, VBG HCO3 20.5 L, VBG Total CO2 21.6 L, VBG O2 Saturation 82.1 H, VBG Base Excess -4.6 L, VBG Lactic Acid 1.9 06/23/24 02:31: WBC 3.5 L, RBC 3.40 L, Hgb 11.2 L, Hct 33.5 L, MCV 98.5, MCH 32.9 H, MCHC 33.3, RDW 14.7, Plt Count 167, MPV 8.0, Neut % (Auto) 92.9 H, Lymph % (Auto) 4.2 L, [place] % (Auto) 2.0, Eos % (Auto) 0.3, Baso % (Auto) 0.5, Neut # (Auto) 3.2, Lymph # (Auto) 0.2 L, [place] # (Auto) 0.1, Eos # (Auto) 0.0, Baso # (Auto) 0.0, Total Counted 100, Neutrophils % (Manual) 93 H, Lymphocytes % (Manual) 3 L, Monocytes % (Manual) 4, Platelet Estimate Normal, RBC Morphology Normal, PT 10.3, INR 0.91, APTT 23.2, Sodium 136, Potassium 4.5, Chloride 106, Carbon Dioxide 20 L, Anion Gap 14.5, BUN 38 H, Creatinine 1.90 H, Estimated Creat Clear 25, Estimated GFR 25 L, Est GFR ( Amer) 31 L, Glucose 161 H, Lactate 1.3, Calcium 9.2, Total Bilirubin 0.9, AST 73 H, ALT 45, Alkaline Phosphatase 76, Troponin I 0.03, NT-Pro-B Natriuret Pep 8290 H, Total Protein 6.2 L, Albumin 3.8, Globulin 2.4, Albumin/Globulin Ratio 1.6, Triglycerides 98, Cholesterol 117 L, LDL Cholesterol Direct 37.84 L, VLDL Cholesterol 20, HDL Cholesterol 59, Cholesterol/HDL Ratio 2.0, Plasma/Serum Alcohol < 10 06/23/24 03:10: Urine Color Yellow, Urine Appearance Clear, Urine pH 5.5, Ur Specific [place] 1.025, Urine Protein 2+ A, Urine Glucose (UA) Negative, Urine Ketones 1+, Urine Blood 1+ A, Urine Nitrate Negative, Urine Bilirubin 1+ A, Urine Urobilinogen 0.2, Ur Leukocyte Esterase Trace, Urine RBC 5-10, Urine WBC 10-20, Ur Squamous Epith Cells 5-10, Urine Bacteria 1+, Urine Mucus Trace, Urine Opiates Screen Negative, Urine Methadone Screen Negative, Ur Barbituates Screen Negative, Ur Phencyclidine Scrn Negative, Ur Amphetamines Screen Negative, U Benzodiazepines Scrn Negative, Urine Cocaine Screen Negative, U Marijuana (THC) Screen Negative 06/23/24 03:18: Chlamy pneumoniae PCR Not detected, Adenovirus (PCR) Not detected, B. pertussis DNA (PCR) Not detected, Coronavirus OC43 (PCR) Not detected, Coronavirus HKU1 (PCR) Not detected, Coronavirus 229E (PCR) Not detected, SARS-CoV-2 (PCR) Not detected, Coronavirus NL63 (PCR) Not detected, Human Metapneumovir PCR Not detected, Influenza A (H1) PCR Not detected, Influ A (H1N1/09) PCR Not detected, Influenza A (H3) PCR Not detected, Influenza Type A (PCR) Not detected, Influenza Type B (PCR) Not detected, M. pneumoniae (PCR) Not detected, Parainfluenza 1 (PCR) Not detected, Parainfluenza 2 (PCR) Not detected, Parainfluenza 3 (PCR) Not detected, Parainfluenza 4 (PCR) Not detected, RSV (PCR) Not detected, Entero/Rhino (PCR) Not detected 06/23/24 05:54: WBC 9.1 D, RBC 2.92 L, Hgb 9.8 L D, Hct 29.4 L, MCV 100.7 H, MCH 33.6 H, MCHC 33.4, RDW 14.8, Plt Count 132 L, MPV 8.2, Neut % (Auto) 94.4 H, Lymph % (Auto) 2.5 L, [place] % (Auto) 2.6, Eos % (Auto) 0.1, Baso % (Auto) 0.4, Neut # (Auto) 8.5 H, Lymph # (Auto) 0.2 L, [place] # (Auto) 0.2, Eos # (Auto) 0.0, Baso # (Auto) 0.0, Sodium 135 L, Potassium 4.0, Chloride 105, Carbon Dioxide 18 L, Anion Gap 16.0 H, BUN 36 H, Creatinine 1.80 H, Estimated Creat Clear 31, Estimated GFR 27 L, Est GFR ( Amer) 33 L, Glucose 205 H D, Lactate 1.0, Calcium 8.2 L, Magnesium 1.9, Total Bilirubin 0.9, AST 87 H, ALT 49, Alkaline Phosphatase 74, Troponin I 0.09 H, Total Protein 4.6 L D, Albumin 2.7 L D, Globulin 1.9, Albumin/Globulin Ratio 1.4 06/23/24 08:35: Troponin I 0.10 H 06/23/24 11:01: POC Glucose 184 H I & O for Last 24 hours: Intake & Output 06/20/24 06/21/24 06/22/24 06/23/24 23:59 23:59 23:59 23:59 Intake Total 240 / 240 Output Total 250 / 250 Balance - - Weight 174 lb 9.6 oz Constitutional Constitutional: no acute distress and average body habitus *Routine HEENT Exam Head: Present normocephalic and atraumatic ENT: Present mucous membranes moist *Routine Neck Exam Neck: Present supple, full ROM and normal carotid upstroke; Absent JVD, carotid bruit or lymphadenopathy *Routine Respiratory Exam Respiratory: Present CTA bilaterally, normal respiratory effort, able to speak in complete sentences and symmetric chest movement *Routine Cardiovascular Exam Cardiovascular: Present RRR, Normal S1, Normal S2 and murmur; Absent gallop *Routine Abdominal Exam Abdominal: Present soft and normoactive bowel sounds; Absent tenderness, distended or organomegaly *Routine Extremities Exam Extremities: Present pulses intact and normal capillary refill; Absent cyanosis, clubbing or edema *Routine Skin Exam Skin: Present intact and warm; Absent erythema *Routine Neurological Exam Neurological: Present alert, oriented X3 and CN II-XII intact; Absent sensory deficit or motor deficit Routine Psychiatric Exam Psychiatric: Present normal affect Meds Home Medications and Allergies Home Medications ?Medication ?Instructions ?Recorded ?Confirmed ?Type allopurinol 300 mg tablet 300 mg PO DAILY 06/23/24 06/23/24 History linaclotide 72 mcg capsule 72 mcg PO DAILY 06/23/24 06/23/24 History (Linzess) metoprolol succinate 25 mg 12.5 mg PO DAILY 06/23/24 06/23/24 History tablet,extended release 24 hr pantoprazole 40 mg tablet,delayed 40 mg PO HS 06/23/24 06/23/24 History release New Prescriptions to Start Prescriptions: Allergies Allergy/AdvReac Type Severity Reaction Status Date / Time No Known Allergies Allergy Verified 06/23/24 02:41 Assessment and Plan *Assessment and plan (1) Elevated troponin: Status: Acute Category: Medical Code(s): R79.89 - Other specified abnormal findings of blood chemistry (2) (HFpEF) heart failure with preserved ejection fraction: Status: Acute Qualifiers: Heart failure chronicity: acute Qualified Code(s): I50.31 - Acute diastolic (congestive) heart failure Category: Medical Code(s): I50.30 - Unspecified diastolic (congestive) heart failure (3) Coronary artery disease: Status: Acute Qualifiers: Coronary Disease-Associated Artery/Lesion type: [place] artery [place] vs. transplanted heart: [place] heart Associated angina: without angina Qualified Code(s): I25.10 - Atherosclerotic heart disease of [place] coronary artery without angina pectoris Category: Medical Code(s): I25.10 - Atherosclerotic heart disease of [place] coronary artery without angina pectoris (4) History of five vessel coronary artery bypass: Status: Acute Category: Surgical Code(s): Z95.1 - Presence of aortocoronary bypass graft (5) H/O mitral valve repair: Status: Acute Category: Surgical Code(s): Z98.890 - Other specified postprocedural states (6) Diabetes mellitus: Status: Acute Qualifiers: Diabetes mellitus type: type 2 Diabetes mellitus fdc insulin use: with fdc use Diabetes mellitus complication status: with kidney complications Diabetes mellitus complication detail: with chronic kidney disease Chronic kidney disease stage: stage 2 (mild) Qualified Code(s): E11.22 - Type 2 diabetes mellitus with diabetic chronic kidney disease; N18.2 - Chronic kidney disease, stage 2 (mild); Z79.4 - correction (current) use of insulin Category: Medical Code(s): E11.9 - Type 2 diabetes mellitus without complications (7) Altered mental status: Status: Acute Qualifiers: Altered mental status type: delirium Qualified Code(s): R41.0 - Disorientation, unspecified Category: Medical Code(s): R41.82 - Altered mental status, unspecified (8) Urinary tract infection: Status: Acute Qualifiers: Urinary tract infection type: acute cystitis Hematuria presence: without hematuria Qualified Code(s): N30.00 - Acute cystitis without hematuria Category: Medical Code(s): N39.0 - Urinary tract infection, site not specified Plan Plan: 1. The patient was admitted to the hospital with altered mental status. She also had a fever at the time of admission. She is currently being treated for UTI. Will defer to the hospitalist. 2. The patient does have acute HFpEF. She denies a history of having congestive heart failure/HFpEF in the past. She does have an elevated BNP. We do recommend diuresis in this patient. Will start her on Bumex 1 mg IV twice daily for diuresis. 3. Repeat her BMP in the morning. She does have chronic kidney disease with a creatinine of 1.8 today. 4. The patient did have a slightly elevated troponin. She denies any chest pain or chest pressure. No wall motion abnormalities noted on echocardiogram. This is likely demand ischemia from her acute HFpEF. No plans for invasive left cardiac catheterization at this time. She would benefit from ischemic evaluation on an outpatient basis. We do recommend aspirin 81 mg daily. Continue metoprolol. 5. Her blood pressure is well-controlled. 6. Her LDL goal is less than 55. Her LDL is 37. We do recommend a statin. Will start her on low-dose Lipitor. 7. The patient is status post mitral valve ring. Will obtain an echocardiogram to evaluate her LV function as well as the mitral valve ring. 8. Further recommendations were made pending the patient's response to treatment and the results of her echocardiogram today. Thank you for the opportunity to participate in the care of this patient. All recommendations and orders are per Dr. Reyes.
[2024-06-23] MEDS: IPRATROPIUM/ALBUTEROL 3 ML NEB IH ×2 (13:44→19:25)
--- NOTE | 2024-06-23 13:49 | HMH.PTEV ---
Physical Therapy Evaluation Rehab PT IP Evaluation Start: 06/23/24 10:42 Freq: ONCE Status: Active Protocol: Document 06/23/24 13:41 DHIRAJ (Rec: 06/23/24 13:49 DHIRAJ [id number]) Subjective/History History History Per H&P: This 79-year-old lady with a known history of diabetes and status post CABG began to have weakness then confusion today.. Her son then took her to another hospital where she was evaluated in the ER and released. When he got home she was much more confused unable to get out of the truck legs did not work. So he called EMS and she was brought here. On arrival the patient was found to have a temperature greater than 103 and quite confused only knew who she was. Workup was done and patient was given acetaminophen a liter of fluid and an antibiotic. After fever came down patient was much more of her normal self. The ER doctor also had a CT scan of the head chest x-ray done. There was no unusual findings except for age related. Also noted patient is normally on room air but it required 2 L by EMS as her saturations remained in the low 90s, we have continued this here in the ER. Also noted the patient is a diabetic and since she has become ill her blood sugars have become wildly variable and much higher per the son . Also noting that the patient has elevated creatinine and BUN. Patient also received Vanco and Zosyn in the emergency room., Having conferred with the ER physician do not feel that this is stroke related. But is due to an infection. Source of the infection is not fully clear as to the urinary tract is does not seem to be that severe. But patient also requiring oxygen which she never had before. I do agree with the emergency room physician I will except the patient and admit to the floor to continue antibiotic. Then also to reevaluate in case MRI of the brain is needed. Subjective Subjective Pt pleasantly agreeable to PT evaluation. PLOF: Pt usually IND with all mobility without use of AD. Pt owns RW and cane. Pt has a hospital bed at home. Pt still driving prior to admission. Home: Pt lives in a 2-story home with 5 LUCY through front door (back door has 0 LUCY). Pt can stay on ground level. Available assistance: Pt reports she lives with her son but he works and is unable to provide 24/7 assistance. New diagnosis of cancer in past 12 No months? Rehab PT IP Eval Objective Appearance Patient Behavior Appropriate Patient Orientation Person Difficulty following instructions none Speech Pattern Clear Ambulation Patient Able to Ambulate No Balance Ability to Arise Able, uses arms to help Sitting Balance Steady, safe Standing Balance Unsteady Dynamic Sitting Balance Ability Good Dynamic Standing Balance Ability Zero Transfers Bed Transfer Ability Moderate x 1 (50% assist) Sit to Stand Bed Transfer Ability Maximum x 2 (75% assist) MMT RLE PT MMT ABN Abnormal MMT Grade 3/5 LLE PT MMT ABN Abnormal MMT Grade 3/5 Rehab PT IP prob,goals,plan Problems Date of Evaluation: 06/23/24 PT IP Problems Bed Mobility,Transfers,Gait, Balance,Safety Rehab Potential Rehab Potential Good Equipment Needs Assistive Devices Rolling / Wheeled Walker Plan PT Intervention Plan Bed Mobility,Transfers,Gait, Balance,Self care,Safety, Therapeutic Exercise Other Intervention Plan 1-2 times PT Plan Frequency Daily Duration LOS Discharge Goals Bed Transfer Ability Minimal x 1 (25% assist) Sit to Stand Chair Transfer Ability Maximum x 1 (75% assist) Discharge Plan PT Discharge Plan Initial physical therapy evaluation performed. Patient presents below baseline at this time in functional mobility, transfers, and strength. Pt not safe to return home at this time d/t current level of functional mobility. PT recommending short-term rehabilitation stay upon d/c from [facility]. Pt would benefit from skilled PT while at [facility] to prevent further functional decline and maximize safety with mobility. Eval Complexity Eval Charge Codes 85168 - High Complexity PHYSICIAN CERTIFICATION: I certify the specified therapy services for Jenna Caruso are required, authorized, and reviewed every 30 days.
--- NOTE | 2024-06-23 14:01 | HMH.OTEV ---
OT Inpatient Evaluation Rehab OT IP Evaluation Start: 06/23/24 10:42 Freq: ONCE Status: Active Protocol: Document 06/23/24 13:34 FRED (Rec: 06/23/24 14:00 [facility] [id number] Rehab OT IP Assessment Subjective History Pt oriented x3 on arrival. Pt agreeable to engage in evaluation. Pt admitted to [facility] on 06/23/24 due to altered mental status and fever. Pt history and physical report : This 79-year-old lady with a known history of diabetes and status post CABG began to have weakness then confusion today .. Her son then took her to another hospital where she was evaluated in the ER and released. When he got home she was much more confused unable to get out of the truck legs did not work. So he called EMS and she was brought here. On arrival the patient was found to have a temperature greater than 103 and quite confused only knew who she was. Workup was done and patient was given acetaminophen a liter of fluid and an antibiotic. After fever came down patient was much more of her normal self. The ER doctor also had a CT scan of the head chest x-ray done. There was no unusual findings except for age related. Also noted patient is normally on room air but it required 2 L by EMS as her saturations remained in the low 90s, we have continued this here in the ER. Also noted the patient is a diabetic and since she has become ill her blood sugars have become wildly variable and much higher per the son . Also noting that the patient has elevated creatinine and BUN. Patient also received Vanco and Zosyn in the emergency room., Having conferred with the ER physician do not feel that this is stroke related. But is due to an infection. Source of the infection is not fully clear as to the urinary tract is does not seem to be that severe. But patient also requiring oxygen which she never had before. I do agree with the emergency room physician I will except the patient and admit to the floor to continue antibiotic. Then also to reevaluate in case MRI of the brain is needed. Subjective Prior to admission to hospital , pt reports living at home with her son. Pt reports that her son works and is therefore not home 05/03. Pt reports being independent with all ADLs. Pt reports that her son provides assistance for IADLs. Pt still engages in driving. Although pt reports having both a walker and cane at home , she does not use them during functional transfers. Pt reports having a hospital bed at home. Objective Patient Orientation Place,Name,Birthday Right Upper Extremity Gross ROM Min Limitation <25% Left Upper Extremity Gross ROM WFL Bed Mobility bed mobility-scooting,bed mobility - supine/sit Assist Level Minimal x 1 (25% assist) Transfer Training Sit/Stand Transfer Assist Level Moderate x 2 (50% assist) Decrease in Endurance Yes Rehab OT IP prob,goals,plan Problems Date of Evaluation: 06/23/24 OT IP Problems Bed Mobility,Transfers,Balance ,Self care,Safety Rehab Potential Rehab Potential Good Equipment Needs Assistive Devices Rolling / Wheeled Walker Plan OT intervention Plan Bed Mobility,Transfers,Balance ,Self care,Safety,Therapeutic Exercise OT Plan Frequency Daily Duration LOS Discharge Goals Bed Mobility Ability Assistance x1 Sit to Stand Chair Transfer Ability Moderate x 1 (50% assist) Chair Transfer Ability Moderate x 1 (50% assist) Chair Transfer Technique Sit to/from Ambulatory Chair Transfer Assistive Devices Rolling Walker Feeding Ability Assist with Tray Set Up Lower Body Dressing Ability Minimal Assistance Upper Body Dressing Ability Minimal Assistance Bathing Ability Moderate Assistance Performing Toilet Hygiene Ability Minimal Assistance Overall Commode/Toilet Transfer Ability Moderate Assistance Commode/Toilet Transfer Technique Sit to/from Ambulatory Commode/Toilet Transfer Assistive Grab Bars Devices Oral Care Assist Contact Guard Decrease in Endurance No Discharge Plan OT Discharge Plan Pt will continue to be seen for OT services while at [facility]. Pt would benefit most from placement at SNF to address functional decline. Pt is recommended to utilize a walker during functional transfers. Continued skilled services are important to improve safety, balance, endurance, ADL independence, and functional transfers to reach [facility]. Eval Complexity Eval Charge Codes 93067 - Moderate Complexity PHYSICIAN CERTIFICATION: I certify the specified therapy services for Jenna Caruso are required, authorized, and reviewed every 30 days.
--- NOTE | 2024-06-23 14:36 | SW/DCPLANNER ---
Addendum entered by [facility] 06/26/24 12:16: Ailin w/ [facility] stated that patient has been accepted for services. Addendum entered by [facility] 06/26/24 11:40: Patient information/order faxed to [facility] . Addendum entered by [facility] 06/26/24 10:23: Patient now prefers to return home w/ home health services. Patient's son is present in room and agreeable w/ this plan as well. I have updated Viviana day/ [facility]. I will set up home health services at time of discharge. Patient does not have a preferred home health agency. Patient will discharge home today. Addendum entered by [facility] 06/26/24 08:03: Patient will discharge to [facility] level of care today and son to transport. Addendum entered by [facility] 06/25/24 10:07: Patient has been approved for SNF level of care at [facility] once medically stable for discharge. Discharge date is unknown at this time. I will continue to follow up w/ MD pedro and [facility]. Addendum entered by [facility] 06/24/24 07:41: Viviana day/ [facility] stated that precert will be started this AM. Original Note: I spoke w/ this patient and her son regarding plans once medically stable for discharge. PT/OT evaluated patient and recommended SNF level of care. Patient is agreeable to placement at this time and would prefer [facility] due to residing in [place]. Patient stated that her next preferred facility would be [place]. I will follow up w/ [facility] today and fax information is beds are available. Discharge date is unknown at this time.
--- NOTE | 2024-06-23 14:40 | PC.NURSE ---
Patient's son at bedside. Updated on POC and PT/OT recommendations. Son states that he works 12 hour shifts and will not be able to provide 24 hour care on discharge. Patient and son agreeable to placement for physical therapy
[2024-06-23] MEDS: ASPIRIN EC 81MG TABLET 81 MG PO (15:00)
[2024-06-23 16:15] LABS: POC Glucose,Bedside 244 (70-110)
[2024-06-23 16:37] LABS: POC Glucose,Bedside 191 (70-110)
--- NOTE | 2024-06-23 17:30 | PC.NURSE ---
Patient alert and oriented. Mentation has improved throughout day. On room air. VSS. Up with 1-2 to bs for voids. One BM. IV antibiotics and diuretics administered per orders. Son was present today during social work visit and plan is to discharge to care facility for rehabilitation.
[2024-06-23 20:56] LABS: POC Glucose,Bedside 147 (70-110)
[2024-06-23] MEDS: ATORVASTATIN 10MG TABLET 10 MG PO (20:58)
[2024-06-23] MEDS: PANTOPRAZOLE 40MG TABLET 40 MG PO (20:58)
[2024-06-24] VITALS (12 sets, daily range): BP systolic 92–119; BP diastolic 40–60; PULSE 64–96; RESP 16–18; TEMP 36.4–39.2; O2SAT 88–97; BMI 27.3
[2024-06-24] MEDS: PIPERACILLIN/TAZO 3.375 GM in 0.9 % SODIUM CHLORIDE 50 ML IV ×2 (00:33→09:06)
--- NOTE | 2024-06-24 05:00 | PC.NURSE ---
Tech reported no urination for 12 hours, bladder scan yielded 585 ml in bladder, pt admits to slight discomfort. contacted Dr. Sims. New orders to anchor 16F Keen cath at this time. Pt tolerated insertion well, dark [place] colored urine is flowing freely through tubing at this time. urine collected and sent to lab for culture.
[2024-06-24 05:38] LABS: Bilirubin,Urine Negative (Negative); Blood, Urine 1+ (Negative); Color,Urine YELLOW (Yellow); Glucose,Urine (UA) Negative (Negative); Ketones,Urine Negative (Negative); Leukocyte Esterase,Urine Negative (Negative); Microscopic, Urine URINE MICROSCOPIC (MICROSCOPIC); Nitrate,Urine Negative (Negative); PH,Urine 5.5 (5.0-8.5); Protein,Urine TRACE (Negative); Urobilinogen,Urine 0.2 EU/dl (0.2)
[2024-06-24 05:39] LABS: Appearance,Urine Slightly Cloudy (Clear)
[2024-06-24 05:49] LABS: Amorphous Sediment,Urine 1+ /lpf; Bacteria,Urine 3+ /lpf
[2024-06-24] MEDS: humaLOG 100 UNITS/ML 10ML VIAL (SSI) SUBCUT ×2 (05:58→15:54)
[2024-06-24] MEDS: ACETAMINOPHEN 325MG TAB 650 MG PO (06:03)
[2024-06-24] MEDS: IPRATROPIUM/ALBUTEROL 3 ML NEB IH ×3 (06:17→20:42)
[2024-06-24 06:35] LABS: POC Glucose,Bedside 161 (70-110)
[2024-06-24 06:54] LABS: Basophils % 0.6 % (0.1-2.0); Eosinophils % 0.3 % (0.1-12.0); Hematocrit 28.9 % (37.0-47.0); Hemoglobin 9.9 g/dL (12.2-16.2); Lymphocytes # 0.2 K/mm3 (0.7-4.5); Lymphocytes % 3.2 % (10-50); Mean Corpuscular HGB Conc 34.1 g/dL (31.8-35.4); Mean Corpuscular Hemoglobin 32.7 pg (27.0-31.2); Mean Corpuscular Volume 95.9 fl (81-99); Mean Platelet Volume 9.1 fl (7.4-10.4); Monocytes # 0.3 K/mm3 (0.1-1.0); Monocytes % 4.6 % (1.7-9.3); Neutrophils # 6.1 K/mm3 (1.8-7.8); Neutrophils % 91.3 % (37.0-80.0); Platelet Count 133 K/mm3 (142-424); Red Blood Count 3.02 M/mm3 (4.20-5.40); Red Cell Distribution Width 14.8 % (11.5-17.5); White Blood Count 6.7 K/mm3 (4.8-10.8)
[2024-06-24 07:01] LABS: MANUAL DIFFERENTIAL MANUAL DIFFERENTIAL (MANUAL DIFF)
[2024-06-24 07:08] LABS: Anion Gap 16.2 mEq/L (5-15); Blood Urea Nitrogen 50 mg/dl (7-17); Calcium 7.8 mg/dl (8.4-10.2); Carbon Dioxide 17 mmol/L (22.0-30.0); Chloride 105 mmol/L (98-107); Creatinine Clearance Estimated 25 mL/min (50-200); Estimated Glomerular Filt Rate 20 ml/min (>60); GFR (African American) 25 ML/MIN (>60); Glucose 131 mg/dl (74-100); Potassium 4.2 mmoL/L (3.5-5.1); Sodium 134 mmol/L (136-145)
[2024-06-24] MEDS: ENOXAPARIN 30MG/0.3ML SYRINGE 30 MG SUBCUT (09:05)
[2024-06-24] MEDS: ASPIRIN EC 81MG TABLET 81 MG PO (09:05)
[2024-06-24 09:16] LABS: Lymphocytes % 6 % (10-50); Monocytes % 1 % (2-9); Neutrophils % 92 % (42-76); Platelet Estimate Slight Decrease; RBC Morphology Normal; Total Cells Counted 100
--- NOTE | 2024-06-24 11:01 | EXP.CARD.PN ---
Subjective Subjective Date: 06/24/24 Time: 09:00 Principal diagnosis: HFpEF Interval history: This is an 79-year-old female who presented to the emergency department with altered mental status. Cardiology was consulted for an acute exacerbation of HFpEF. She was diuresed with IV Bumex yesterday. She did have a bump in her creatinine to 2.3 today. She denies any chest pain or pressure. She denies any shortness of breath or edema. She denies any fever, chills, nausea, vomiting, diarrhea, PND or orthopnea. Exam Data for Last 24 hours Vital signs and Labs for Last 24 Hours: Temp Pulse Resp BP Pulse Ox O2 Del Method O2 Flow Rate 98.5 F 86 18 117/40 L 94 L Nasal Cannula 1 06/24/24 09:29 06/24/24 08:00 06/24/24 08:00 06/24/24 08:00 06/24/24 08:00 06/24/24 10:32 06/24/24 10:32 Laboratory Results - last 24 hr 06/23/24 06:24: POC Glucose 244 H 06/23/24 11:01: POC Glucose 184 H 06/23/24 16:29: POC Glucose 191 H 06/23/24 20:35: POC Glucose 147 H 06/24/24 05:31: Urine Color Yellow, Urine Appearance Slightly cloudy, Urine pH 5.5, Ur Specific [place] 1.020, Urine Protein Trace, Urine Glucose (UA) Negative, Urine Ketones Negative, Urine Blood 1+ A, Urine Nitrate Negative, Urine Bilirubin Negative, Urine Urobilinogen 0.2, Ur Leukocyte Esterase Negative, Urine RBC 3-5, Urine WBC 3-5, Ur Squamous Epith Cells 5-10, Amorphous Sediment 1+, Urine Bacteria 3+ 06/24/24 05:55: POC Glucose 161 H 06/24/24 05:56: WBC 6.7 D, RBC 3.02 L, Hgb 9.9 L, Hct 28.9 L, MCV 95.9, MCH 32.7 H, MCHC 34.1, RDW 14.8, Plt Count 133 L, MPV 9.1, Neut % (Auto) 91.3 H, Lymph % (Auto) 3.2 L, [place] % (Auto) 4.6, Eos % (Auto) 0.3, Baso % (Auto) 0.6, Neut # (Auto) 6.1, Lymph # (Auto) 0.2 L, [place] # (Auto) 0.3, Eos # (Auto) 0.0, Baso # (Auto) 0.0, Total Counted 100, Neutrophils % (Manual) 92 H, Band Neutrophils % 1.0, Lymphocytes % (Manual) 6 L, Monocytes % (Manual) 1 L, Platelet Estimate Slight decrease, RBC Morphology Normal, Sodium 134 L, Potassium 4.2, Chloride 105, Carbon Dioxide 17 L, Anion Gap 16.2 H, BUN 50 H D, Creatinine 2.30 H D, Estimated Creat Clear 25, Estimated GFR 20 L, Est GFR ( Amer) 25 L D, Glucose 131 H, Calcium 7.8 L I & O for Last 24 hours: Intake & Output 06/21/24 06/22/24 06/23/24 06/24/24 23:59 23:59 23:59 23:59 Intake Total 460 / 820 360 / 360 Output Total 550 / 550 575 / 575 Balance -90 / 270 -215 / -215 Weight 174 lb 9.6 oz 180 lb 8 oz Microbiology Reports for the Last 24 Hours: Microbiology 06/23/24 02:45 Blood Blood Culture - Preliminary 06/23/24 03:10 Urine,Catheterized Urine Culture - Final No growth. Constitutional Constitutional: no acute distress and average body habitus *Routine HEENT Exam Head: Present normocephalic and atraumatic ENT: Present mucous membranes moist *Routine Neck Exam Neck: Present supple, full ROM and normal carotid upstroke; Absent JVD, carotid bruit or lymphadenopathy *Routine Respiratory Exam Respiratory: Present CTA bilaterally, normal respiratory effort, able to speak in complete sentences and symmetric chest movement *Routine Cardiovascular Exam Cardiovascular: Present RRR, Normal S1, Normal S2 and murmur; Absent gallop *Routine Abdominal Exam Abdominal: Present soft and normoactive bowel sounds; Absent tenderness, distended or organomegaly *Routine Extremities Exam Extremities: Present pulses intact and normal capillary refill; Absent cyanosis, clubbing or edema *Routine Skin Exam Skin: Present intact and warm; Absent erythema *Routine Neurological Exam Neurological: Present alert, oriented X3 and CN II-XII intact; Absent sensory deficit or motor deficit Routine Psychiatric Exam Psychiatric: Present normal affect Progress Note: A&P Assessment and plan (1) (HFpEF) heart failure with preserved ejection fraction: Status: Acute (2) Sepsis: Status: Acute (3) Urinary tract infection: Status: Acute (4) Encephalopathy acute: Status: Acute (5) Fever: Status: Acute (6) Diabetes mellitus: Status: Acute (7) Coronary artery disease: Status: Acute (8) History of five vessel coronary artery bypass: Status: Acute (9) H/O mitral valve repair: Status: Acute (10) Elevated troponin: Status: Acute (11) Kidney dysfunction: Status: Acute Assessment and Plan Assessment and Plan for All Diagnoses:: Plan: 1. Patient was admitted to the hospital with altered mental status. She did have a fever at the time of her admission as well. She is currently being treated for a UTI. Will defer management of this to the hospital. 2. The patient also had an acute exacerbation of HFpEF. She was diuresed with IV Bumex overnight. Her intake and output was not adequately recorded. She did have a bump in her creatinine from 1.8-2.3. Will stop IV Bumex and start Lasix 20 mg p.o. daily tomorrow for HFpEF. 3. Repeat a BMP in the morning. 4. The patient did have a slightly elevated troponin. She denied any chest pain or pressure. No wall motion abnormalities noted on echocardiogram. This is likely demand ischemia from her acute HFpEF. However she does have a history of known coronary artery disease with CABG. We do recommend an outpatient ischemic evaluation once she is discharged from the hospital. 5. Continue aspirin 81 mg daily for coronary artery disease. 6. Continue metoprolol for coronary artery disease. 7. Her blood pressure is well-controlled. 8. Her LDL goal is less than 55. Her LDL is 37. She is now on a statin. 9. The patient is status post mitral valve ring with a preserved ejection fraction. 10. Further recommendations will be made pending the patient's response to treatment. Thank you for the opportunity to help dissipate in the care of this patient. All recommendations and orders are per Dr. Reyes.
[2024-06-24] MEDS: METOPROLOL SUCCINATE XL 25MG TABLET 12.5 MG PO (11:33)
[2024-06-24 11:45] LABS: POC Glucose,Bedside 127 (70-110)
--- NOTE | 2024-06-24 14:18 | CT_ITS ---
FINAL REPORT CLINICAL HISTORY: .fever COMPARISON: None FINDINGS: CT OF THE ABDOMEN AND PELVIS WITH CONTRAST Axial CT images of the abdomen and pelvis were obtained after the administration of IV contrast. Coronal and sagittal reformatted images were also obtained and reviewed. This study was performed with techniques to keep radiation doses as low as reasonably achievable (ALARA). Individualized dose reduction techniques using automated exposure control or adjustment of mA and/or kV according to the patient's size were employed. Abdomen: Mild bibasilar atelectasis and small bilateral pleural effusions are noted.. Cardiomegaly is present. A moderate to large hiatal hernia is noted. The liver has an unremarkable appearance, without evidence of mass or biliary ductal dilatation. The gallbladder is moderately distended with mild nonspecific wall thickening. The spleen contains multiple low-attenuation masses, likely granulomas although neoplasm not excluded. Mild splenomegaly is present as well. No adrenal mass is present. The pancreas has an unremarkable appearance. There is a less than 2 mm in size nonobstructing left renal stone. The kidneys are otherwise unremarkable in appearance. Mild anasarca is present. There are presumed dystrophic calcifications in the anterior abdominal wall measuring up to 4 cm in size. The aorta is normal in caliber. There is no free fluid or adenopathy. No mass or abnormal fluid collection is seen. Pelvis: The appendix is not well-visualized. The urinary bladder contains a Keen catheter. A moderate amount of stool is present throughout the colon. No inflammatory process is seen. There is no evidence of mass or adenopathy. There is no evidence of bowel obstruction. Evidence of prior kyphoplasty's is present at both the T12 and L1 levels. A left hip arthroplasty produces streak artifact slightly limiting overall image quality in the lower pelvis. IMPRESSION: The gallbladder is moderately distended with mild nonspecific wall thickening. If indicated, either ultrasound or a nuclear medicine hepatobiliary scan might be helpful for further evaluation. Mild splenomegaly, with multiple low-attenuation masses in the spleen, likely granulomas although neoplasm cannot be excluded. Follow-up CT may be helpful. Reviewed, Interpreted and Dictated by Lenny Nick III, MD Transcribed by Ealna Amaro Authenticated and [facility]
--- NOTE | 2024-06-24 14:18 | CT_ITS ---
FINAL REPORT TECHNIQUE: Axial CT images were performed from the lung apices through the upper abdomen. Coronal and sagittal reformats were submitted. This study was performed with techniques to keep radiation doses as low as reasonably achievable (ALARA). Individualized dose reduction techniques using automated exposure control or adjustment of mA and/or kV according to the patient's size were employed. CLINICAL HISTORY: .fever COMPARISON: None FINDINGS: CT CHEST: The patient has undergone a prior midline sternotomy. There is no axillary adenopathy. Several small nonspecific mediastinal nodes are identified. Cardiomegaly is noted. A moderate-sized hiatal hernia is present. There are small bilateral pleural effusions and mild bibasilar atelectasis. No suspicious infiltrate or nodule is identified on lung window images. Note is made of multiple chronic thoracic spine compression fractures. IMPRESSION: Small bilateral pleural effusions and mild bibasilar atelectasis, without confluent infiltrate identified. Reviewed, Interpreted and Dictated by Lenny Nick III, MD Transcribed by Elana Amaro Authenticated and . [facility]
[2024-06-24] MEDS: SODIUM CHLORIDE 0.9% 10ML SYR (RAD ONLY) 10 ML IV (15:16)
[2024-06-24] MEDS: IOPAMIDOL-370 (76%);100ML BOTTLE 75 ML IV (15:16)
[2024-06-24 16:03] LABS: POC Glucose,Bedside 189 (70-110)
--- NOTE | 2024-06-24 17:49 | PC.NURSE ---
A&OX4. TOLERATING RA WELL AT THIS TIME. PATIENT HAS FELT MUCH BETTER TODAY. FEVERS ARE UNDER CONTROL AT THIS TIME. PATIENT IS A X1 ASSIST TO THE BATHROOM. F/C STILL ANCHORED AT THIS TIME. ATTEMPTING VOIDING TRIAL AT THIS TIME. OF RIGHT NOW, PATIENT HAS HAD NO URGE TO VOID. WILL UN-CLAMP MOMENTARILY. HAS HAD NO NEEDS OR C/O THUS FAR THIS SHIFT. RESTING IN BED INTERMITTENTLY. VSS.
[2024-06-24] MEDS: PANTOPRAZOLE 40MG TABLET 40 MG PO (20:22)
[2024-06-24] MEDS: ATORVASTATIN 10MG TABLET 10 MG PO (20:22)
[2024-06-24] MEDS: CEFEPIME HCL 1 GM in 0.9 % SODIUM CHLORIDE 50 ML IV (20:22)
[2024-06-24 20:38] LABS: POC Glucose,Bedside 96 (70-110)
--- NOTE | 2024-06-24 22:12 | P.PN_ITS ---
Subjective *Date: 06/24/24 *Time: 22:12 Exam Data for Last 24 hours Vital signs and Labs for Last 24 Hours: Temp Pulse Resp BP Pulse Ox O2 Del Method O2 Flow Rate 97.8 F 65 17 119/60 97 Room Air 1 06/24/24 20:00 06/24/24 20:42 06/24/24 20:00 06/24/24 20:00 06/24/24 20:00 06/24/24 20:00 06/24/24 10:32 Laboratory Results - last 24 hr 06/24/24 05:31: Urine Color Yellow, Urine Appearance Slightly cloudy, Urine pH 5.5, Ur Specific [place] 1.020, Urine Protein Trace, Urine Glucose (UA) Negative, Urine Ketones Negative, Urine Blood 1+ A, Urine Nitrate Negative, Urine Bilirubin Negative, Urine Urobilinogen 0.2, Ur Leukocyte Esterase Negative, Urine RBC 3-5, Urine WBC 3-5, Ur Squamous Epith Cells 5-10, Amorphous Sediment 1+, Urine Bacteria 3+ 06/24/24 05:55: POC Glucose 161 H 06/24/24 05:56: WBC 6.7 D, RBC 3.02 L, Hgb 9.9 L, Hct 28.9 L, MCV 95.9, MCH 32.7 H, MCHC 34.1, RDW 14.8, Plt Count 133 L, MPV 9.1, Neut % (Auto) 91.3 H, Lymph % (Auto) 3.2 L, [place] % (Auto) 4.6, Eos % (Auto) 0.3, Baso % (Auto) 0.6, Neut # (Auto) 6.1, Lymph # (Auto) 0.2 L, [place] # (Auto) 0.3, Eos # (Auto) 0.0, Baso # (Auto) 0.0, Total Counted 100, Neutrophils % (Manual) 92 H, Band Neutrophils % 1.0, Lymphocytes % (Manual) 6 L, Monocytes % (Manual) 1 L, Platelet Estimate Slight decrease, RBC Morphology Normal, Sodium 134 L, Potassium 4.2, Chloride 105, Carbon Dioxide 17 L, Anion Gap 16.2 H, BUN 50 H D, Creatinine 2.30 H D, Estimated Creat Clear 25, Estimated GFR 20 L, Est GFR ( Amer) 25 L D, Glucose 131 H, Calcium 7.8 L 06/24/24 11:29: POC Glucose 127 H 06/24/24 15:51: POC Glucose 189 H 06/24/24 20:28: POC Glucose 96 I & O for Last 24 hours: Intake & Output 06/21/24 06/22/24 06/23/24 06/24/24 23:59 23:59 23:59 23:59 Intake Total 460 / 820 950 / 950 Output Total 550 / 550 775 / 775 Balance -90 / 270 175 / 175 Weight 79.197 kg 81.873 kg Microbiology Reports for the Last 24 Hours: Microbiology 06/23/24 02:45 Blood Blood Culture - Preliminary 06/23/24 03:10 Urine,Catheterized Urine Culture - Final No growth. Constitutional Constitutional: no acute distress *Routine HEENT Exam Head: Present normocephalic Eye: Present EOMI and PERRL ENT: Present mucous membranes moist *Routine Neck Exam Neck: Present supple; Absent lymphadenopathy *Routine Respiratory Exam Respiratory: Present CTA bilaterally *Routine Cardiovascular Exam Cardiovascular: Present RRR *Routine Abdominal Exam Abdominal: Present soft and normoactive bowel sounds; Absent tenderness *Routine Extremities Exam Extremities: Absent cyanosis, clubbing or edema *Routine Skin Exam Skin: Present warm; Absent rash *Routine Neurological Exam Neurological: Present alert and oriented X3 Assessment and Plan *Assessment and plan (1) Sepsis: Status: Acute Category: Medical Code(s): A41.9 - Sepsis, unspecified organism (2) Urinary tract infection: Status: Acute Qualifiers: Urinary tract infection type: acute cystitis Hematuria presence: without hematuria Qualified Code(s): N30.00 - Acute cystitis without hematuria Category: Medical Code(s): N39.0 - Urinary tract infection, site not specified (3) Encephalopathy acute: Status: Acute Category: Medical Code(s): G93.40 - Encephalopathy, unspecified (4) Fever: Status: Acute Qualifiers: Fever type: unspecified Qualified Code(s): R50.9 - Fever, unspecified Category: Medical Code(s): R50.9 - Fever, unspecified (5) (HFpEF) heart failure with preserved ejection fraction: Status: Acute Qualifiers: Heart failure chronicity: acute Qualified Code(s): I50.31 - Acute diastolic (congestive) heart failure Category: Medical Code(s): I50.30 - Unspecified diastolic (congestive) heart failure (6) Low oxygen saturation: Status: Acute Category: Medical Code(s): R79.81 - Abnormal blood-gas level (7) Kidney dysfunction: Status: Acute Category: Medical Code(s): N28.9 - Disorder of kidney and ureter, unspecified (8) Diabetes mellitus: Status: Acute Qualifiers: Diabetes mellitus type: type 2 Diabetes mellitus manager long term care insulin use: with manager long term care use Diabetes mellitus complication status: with kidney complications Diabetes mellitus complication detail: with chronic kidney disease Chronic kidney disease stage: stage 2 (mild) Qualified Code(s): E11.22 - Type 2 diabetes mellitus with diabetic chronic kidney disease; N18.2 - Chronic kidney disease, stage 2 (mild); Z79.4 - intermediate (current) use of insulin Category: Medical Code(s): E11.9 - Type 2 diabetes mellitus without complications Plan Presented with confusion and fever. Concern for UTI. Case discussed with ER physician, request admission for further management and therapy eval. Medicine agreed to admit. Problems addressed as follows: Sepsis Encephalopathy, resolved Pseudomonas bacteremia H/o mitral valve replacement - Initial VBG with normal blood gas 7.38, pCO2 36. - BC growing pseudomonas. Follow-up repeat cultures. Urine culture normal. - Transitioned to cefepime from Zosyn. - Follow-up CT chest, abdomen/pelvis for source. - Will benefit from SHAYLA especially in setting of mitral valve ring. NPO after midnight. Acute exacerbation of heart failure preserved ejection fraction History of CABG x 5 - BNP elevated 8200. Serial troponins pending. Initial troponin 0.03. - Transitioned to Lasix 20mg daily, discontinued IV lasix after bump in creatnine from 1.8-2.3. - Follow-up ECHO Full code Diabetic diet Lovenox 40 mg subcu daily
[2024-06-25] VITALS (9 sets, daily range): BP systolic 99–139; BP diastolic 45–57; PULSE 68–86; RESP 15–18; TEMP 36.6–36.8; O2SAT 93–98; BMI 27.3
[2024-06-25] MEDS: IPRATROPIUM/ALBUTEROL 3 ML NEB IH ×3 (05:55→23:55)
[2024-06-25 07:12] LABS: Basophils % 0.7 % (0.1-2.0); Eosinophils # 0.2 K/mm3 (0.0-0.4); Lymphocytes # 0.8 K/mm3 (0.7-4.5); Lymphocytes % 12.7 % (10-50); Mean Corpuscular HGB Conc 33.5 g/dL (31.8-35.4); Mean Corpuscular Hemoglobin 32.8 pg (27.0-31.2); Mean Platelet Volume 9.2 fl (7.4-10.4); Monocytes # 0.5 K/mm3 (0.1-1.0); Monocytes % 9.1 % (1.7-9.3); Neutrophils # 4.4 K/mm3 (1.8-7.8); Neutrophils % 73.5 % (37.0-80.0); Platelet Count 135 K/mm3 (142-424); Red Blood Count 2.75 M/mm3 (4.20-5.40); Red Cell Distribution Width 14.8 % (11.5-17.5); White Blood Count 5.9 K/mm3 (4.8-10.8)
[2024-06-25 07:43] LABS: Anion Gap 12.4 mEq/L (5-15); Blood Urea Nitrogen 53 mg/dl (7-17); Calcium 7.5 mg/dl (8.4-10.2); Carbon Dioxide 19 mmol/L (22.0-30.0); Chloride 108 mmol/L (98-107); Creatinine Clearance Estimated 26 mL/min (50-200); Estimated Glomerular Filt Rate 21 ml/min (>60); GFR (African American) 26 ML/MIN (>60); Glucose 80 mg/dl (74-100); Potassium 3.4 mmoL/L (3.5-5.1); Sodium 136 mmol/L (136-145)
[2024-06-25] MEDS: FUROSEMIDE 20MG TABLET 20 MG PO (08:42)
[2024-06-25] MEDS: METOPROLOL SUCCINATE XL 25MG TABLET 12.5 MG PO (08:42)
[2024-06-25] MEDS: ASPIRIN EC 81MG TABLET 81 MG PO (08:42)
[2024-06-25] MEDS: CEFEPIME HCL 1 GM in 0.9 % SODIUM CHLORIDE 50 ML IV (08:43)
[2024-06-25] MEDS: ENOXAPARIN 30MG/0.3ML SYRINGE 30 MG SUBCUT (08:43)
--- NOTE | 2024-06-25 10:43 | US_ITS ---
FINAL REPORT CLINICAL HISTORY: EVAL GB WAL;;L THICKENING-- FEVER FINDINGS: RIGHT UPPER QUADRANT ULTRASOUND Technique: Ultrasound images of the right upper quadrant were obtained. Limited images of the liver parenchyma is normal in echogenicity. There is nonspecific gallbladder wall thickening without evidence of gallstones. Gallbladder wall measures 5 mm. The common duct measures 3 mm. There is right renal cortical thinning. IMPRESSION: Nonspecific gallbladder wall thickening. Reviewed, Interpreted and Dictated by Lenny Nick III, MD Transcribed by Jennifer Jones Authenticated and [facility]
[2024-06-25] MEDS: POTASSIUM CHLORIDE 20MEQ TAB 40 MEQ PO ×2 (11:34→14:35)
[2024-06-25] MEDS: humaLOG 100 UNITS/ML 10ML VIAL (SSI) SUBCUT ×3 (11:38→20:06)
[2024-06-25 11:46] LABS: POC Glucose,Bedside 338 (70-110)
--- NOTE | 2024-06-25 11:50 | EXP.CARD.PN ---
Subjective Subjective Date: 06/25/24 Time: 10:00 Principal diagnosis: HFpEF Interval history: This is an 79-year-old female who presented to the emergency department with altered mental status. The patient had acute HFpEF. She was diuresed with IV Bumex and switched over to oral Bumex yesterday. She has tolerated this well. Today she denies any chest pain or pressure. She denies any shortness of breath or edema. She denies any fever, chills, nausea, vomiting, diarrhea, PND orthopnea. Exam Data for Last 24 hours Vital signs and Labs for Last 24 Hours: Temp Pulse Resp BP Pulse Ox O2 Del Method O2 Flow Rate 98.1 F 86 15 124/47 L 96 Room Air 1 06/25/24 11:06/25/24 11:06/25/24 11:06/25/24 11:06/25/24 11:06/25/24 11:06/24/24 10:32 Laboratory Results - last 24 hr 06/24/24 15:51: POC Glucose 189 H 06/24/24 20:28: POC Glucose 96 06/25/24 06:02: WBC 5.9, RBC 2.75 L, Hgb 9.0 L, Hct 27.0 L, MCV 98.0, MCH 32.8 H, MCHC 33.5, RDW 14.8, Plt Count 135 L, MPV 9.2, Neut % (Auto) 73.5, Lymph % (Auto) 12.7, [place] % (Auto) 9.1, Eos % (Auto) 4.0, Baso % (Auto) 0.7, Neut # (Auto) 4.4, Lymph # (Auto) 0.8, [place] # (Auto) 0.5, Eos # (Auto) 0.2, Baso # (Auto) 0.0, Sodium 136, Potassium 3.4 L, Chloride 108 H, Carbon Dioxide 19 L, Anion Gap 12.4, BUN 53 H, Creatinine 2.20 H, Estimated Creat Clear 26, Estimated GFR 21 L, Est GFR ( Amer) 26 L, Glucose 80, Calcium 7.5 L 06/25/24 11:38: POC Glucose 338 H* I & O for Last 24 hours: Intake & Output 06/22/24 06/23/24 06/24/2406/25/24 23:59 23:59 23:59 23:59 Intake Total 460 / 820 950 / 1050 440 / 440 Output Total 550 / 550 775 / 775 1025 / 1025 Balance -90 / 270 175 / 275 -585 / -585 Weight 174 lb 9.6 oz 180 lb 8 oz 180 lb 9.6 oz Microbiology Reports for the Last 24 Hours: Microbiology 06/23/24 02:45 Blood Blood Culture - Preliminary 06/24/24 09:41 Blood Blood Culture - Preliminary NO GROWTH AFTER 24 HOURS 06/24/24 09:36 Blood Blood Culture - Preliminary NO GROWTH AFTER 24 HOURS 06/23/24 03:10 Urine,Catheterized Urine Culture - Final No growth. Constitutional Constitutional: no acute distress and average body habitus *Routine HEENT Exam Head: Present normocephalic and atraumatic ENT: Present mucous membranes moist *Routine Neck Exam Neck: Present supple, full ROM and normal carotid upstroke; Absent JVD, carotid bruit or lymphadenopathy *Routine Respiratory Exam Respiratory: Present CTA bilaterally, normal respiratory effort, able to speak in complete sentences and symmetric chest movement *Routine Cardiovascular Exam Cardiovascular: Present RRR, Normal S1, Normal S2 and murmur; Absent gallop *Routine Abdominal Exam Abdominal: Present soft and normoactive bowel sounds; Absent tenderness, distended or organomegaly *Routine Extremities Exam Extremities: Present pulses intact and normal capillary refill; Absent cyanosis, clubbing or edema *Routine Skin Exam Skin: Present intact and warm; Absent erythema *Routine Neurological Exam Neurological: Present alert, oriented X3 and CN II-XII intact; Absent sensory deficit or motor deficit Routine Psychiatric Exam Psychiatric: Present normal affect Progress Note: A&P Assessment and plan (1) (HFpEF) heart failure with preserved ejection fraction: Status: Acute (2) Elevated troponin: Status: Acute (3) Coronary artery disease: Status: Acute (4) History of five vessel coronary artery bypass: Status: Acute (5) H/O mitral valve repair: Status: Acute (6) Sepsis: Status: Acute (7) Urinary tract infection: Status: Acute (8) Encephalopathy acute: Status: Acute (9) Fever: Status: Acute (10) Low oxygen saturation: Status: Acute (11) Kidney dysfunction: Status: Acute (12) Diabetes mellitus: Status: Acute Assessment and Plan Assessment and Plan for All Diagnoses:: Plan: 1. Patient was admitted to the hospital with altered mental status. She did have a fever at the time of her admission as well. She is currently being treated for a UTI. Will defer management of this to the hospital. 2. The patient also had an acute exacerbation of HFpEF. The patient was diuresed with IV Bumex and switch over to oral Bumex yesterday. 3. Her creatinine is down to 2.2 today. 4. The patient did have a slightly elevated troponin. She denied any chest pain or pressure. No wall motion abnormalities noted on echocardiogram. This is likely demand ischemia from her acute HFpEF. However she does have a history of known coronary artery disease with CABG. We do recommend an outpatient ischemic evaluation once she is discharged from the hospital. 5. Continue aspirin 81 mg daily for coronary artery disease. 6. Continue metoprolol for coronary artery disease. 7. Her blood pressure is well-controlled. 8. Her LDL goal is less than 55. Her LDL is 37. She is now on a statin. 9. The patient is status post mitral valve ring with a preserved ejection fraction. The patient does have bacteremia with Pseudomonas on one of her blood cultures. SAHYLA was recommended by the hospitalist. However Dr. echols does not think proceeding with SHAYLA is indicated at this time. She has not had any persistently positive blood cultures at this point and her mitral valve ring has no concerns for vegetation on the TTE. However, if she has persistently positive blood cultures despite antibiotics then we can consider SHAYLA in the future per Dr. Echols. 10. Further recommendations will be made pending the patient's response to treatment. Thank you for the opportunity to help participate in the care of this patient. All recommendations and orders are per Dr. Reyes.
--- NOTE | 2024-06-25 14:43 | PC.NURSE ---
PT IS SITTING UP IN THE CHAIR. ALERT AND ORIENTED X4. AMBULATES TO THE BATHROOM WITH WALKER AND 1 ASSIST. LUNG SOUNDS DIMINISHED WITH FINE CRACKLES (BILATERAL BASES). ABDOMEN SOFT/NON TENDER WITH ACTIVE BOWEL SOUNDS. HILL DC'D THIS MORNING. PT HAS VOIDED SINCE HILL REMOVED. 1 BOWEL MOVEMENT THIS SHIFT. WILL CONTINUE TO MONITOR.
[2024-06-25 16:09] LABS: POC Glucose,Bedside 302 (70-110)
--- NOTE | 2024-06-25 17:09 | P.PN_ITS ---
Subjective *Date: 06/25/24 *Time: 17:09 Interval history: Patient is doing well today. Exam Data for Last 24 hours Vital signs and Labs for Last 24 Hours: Temp Pulse Resp BP Pulse Ox O2 Del Method O2 Flow Rate 98.1 F 69 16 128/55 L 97 Room Air 1 06/25/24 15:40 06/25/24 15:40 06/25/24 15:40 06/25/24 15:40 06/25/24 15:40 06/25/24 15:40 06/24/24 10:32 Laboratory Results - last 24 hr 06/24/24 20:28: POC Glucose 96 06/25/24 06:02: WBC 5.9, RBC 2.75 L, Hgb 9.0 L, Hct 27.0 L, MCV 98.0, MCH 32.8 H , MCHC 33.5, RDW 14.8, Plt Count 135 L, MPV 9.2, Neut % (Auto) 73.5, Lymph % (Auto) 12.7, Cole % (Auto) 9.1, Eos % (Auto) 4.0, Baso % (Auto) 0.7, Neut # (Auto) 4.4, Lymph # (Auto) 0.8, Cole # (Auto) 0.5, Eos # (Auto) 0.2, Baso # (Auto) 0.0, Sodium 136, Potassium 3.4 L, Chloride 108 H, Carbon Dioxide 19 L, Anion Gap 12.4, BUN 53 H, Creatinine 2.20 H, Estimated Creat Clear 26, Estimated GFR 21 L, Est GFR ( Amer) 26 L, Glucose 80, Calcium 7.5 L 06/25/24 11:38: POC Glucose 338 H* 06/25/24 15:57: POC Glucose 302 H* I & O for Last 24 hours: Intake & Output 06/22/24 06/23/24 06/24/24 06/25/24 23:59 23:59 23:59 23:59 Intake Total 460 / 820 950 / 1050 490 / 490 Output Total 550 / 550 775 / 775 1025 / 1025 Balance -90 / 270 175 / 275 -535 / -535 Weight 79.197 kg 81.873 kg 81.919 kg Microbiology Reports for the Last 24 Hours: Microbiology 06/23/24 02:45 Blood Blood Culture - Preliminary 06/24/24 09:41 Blood Blood Culture - Preliminary NO GROWTH AFTER 24 HOURS 06/24/24 09:36 Blood Blood Culture - Preliminary NO GROWTH AFTER 24 HOURS Constitutional Constitutional: no acute distress and average body habitus *Routine HEENT Exam Head: Present normocephalic and atraumatic ENT: Present mucous membranes moist *Routine Neck Exam Neck: Present supple, full ROM and normal carotid upstroke; Absent JVD, carotid bruit or lymphadenopathy *Routine Respiratory Exam Respiratory: Present CTA bilaterally, normal respiratory effort, able to speak in complete sentences and symmetric chest movement *Routine Cardiovascular Exam Cardiovascular: Present RRR, Normal S1, Normal S2 and murmur; Absent gallop *Routine Abdominal Exam Abdominal: Present soft and normoactive bowel sounds; Absent tenderness, distended or organomegaly *Routine Extremities Exam Extremities: Present pulses intact and normal capillary refill; Absent cyanosis, clubbing or edema *Routine Skin Exam Skin: Present intact and warm; Absent erythema *Routine Neurological Exam Neurological: Present alert, oriented X3 and CN II-XII intact; Absent sensory deficit or motor deficit Routine Psychiatric Exam Psychiatric: Present normal affect Assessment and Plan *Assessment and plan (1) Sepsis: Status: Acute Category: Medical Code(s): A41.9 - Sepsis, unspecified organism (2) Urinary tract infection: Status: Acute Qualifiers: Urinary tract infection type: acute cystitis Hematuria presence: without hematuria Qualified Code(s): N30.00 - Acute cystitis without hematuria Category: Medical Code(s): N39.0 - Urinary tract infection, site not specified (3) Encephalopathy acute: Status: Acute Category: Medical Code(s): G93.40 - Encephalopathy, unspecified (4) Fever: Status: Acute Qualifiers: Fever type: unspecified Qualified Code(s): R50.9 - Fever, unspecified Category: Medical Code(s): R50.9 - Fever, unspecified (5) (HFpEF) heart failure with preserved ejection fraction: Status: Acute Qualifiers: Heart failure chronicity: acute Qualified Code(s): I50.31 - Acute diastolic (congestive) heart failure Category: Medical Code(s): I50.30 - Unspecified diastolic (congestive) heart failure (6) Low oxygen saturation: Status: Acute Category: Medical Code(s): R79.81 - Abnormal blood-gas level (7) Kidney dysfunction: Status: Acute Category: Medical Code(s): N28.9 - Disorder of kidney and ureter, unspecified (8) Diabetes mellitus: Status: Acute Qualifiers: Diabetes mellitus type: type 2 Diabetes mellitus buttermaker helper insulin use: with buttermaker helper use Diabetes mellitus complication status: with kidney complications Diabetes mellitus complication detail: with chronic kidney di sease Chronic kidney disease stage: stage 2 (mild) Qualified Code(s): E11.22 - Type 2 diabetes mellitus with diabetic chronic kidney disease; N18.2 - Chronic kidney disease, stage 2 (mild); Z79.4 - group home (current) use of insulin Category: Medical Code(s): E11.9 - Type 2 diabetes mellitus without complications Plan Presented with confusion and fever. Sepsis, resolved Encephalopathy, resolved Pseudomonas bacteremia H/o mitral valve ring - Initial VBG with normal blood gas 7.38, pCO2 36. - BC growing pseudomonas. Follow-up blood cultures NGTD 24 hours. Urine culture normal. ? CT abdomen/pelvis showed nonspecific gallbladder wall thickening. Preliminary RUQ ultrasound shows the same. Spoke with general surgery, and given that patient is completely asymptomatic there is no plan for inpatient cholecystectomy. Plan to follow-up with surgery outpatient. - Transitioned from cefepime to ciprofloxacin. Day 10/20. - Spoke to cardiology regarding SHAYLA with a history of mitral valve ring, and joint decision was made to not pursue SHAYLA at this time given no risk factors for endocarditis and normal TTE. - Plan for discharge today, however did not have a ride to get to nursing facility. Son will be here at noon tomorrow to help patient transport to [facility]. Acute exacerbation of heart failure preserved ejection fraction History of CABG x 5 #Elevated troponin - BNP elevated 8200. Initial troponin 0.03. -Continue to Lasix 20mg daily. Improved with IV Lasix. -Cardiology consulted, ECHO No wall motion abnormalities noted on echocardiogram. This is likely demand ischemia from her acute HFpEF. However she does have a history of known coronary artery disease with CABG. cardiology does recommend an outpatient ischemic evaluation once she is discharged from the hospital. Full code Diabetic diet Lovenox 40 mg subcu daily
[2024-06-25] MEDS: ATORVASTATIN 10MG TABLET 10 MG PO (20:06)
[2024-06-25] MEDS: PANTOPRAZOLE 40MG TABLET 40 MG PO (20:06)
[2024-06-26] VITALS: BP 128/54; PULSE 71; RESP 16; TEMP 36.9; O2SAT 97
--- NOTE | 2024-06-26 01:07 | P.DS_ITS ---
General Admission date:: 06/23/24 Discharge date: 06/26/24 HPI HPI HPI: This 79-year-old lady with a known history of diabetes and status post CABG began to have weakness then confusion today.. Her son then took her to another hospital where she was evaluated in the ER and released. When he got home she was much more confused unable to get out of the truck legs did not work. So he called EMS and she was brought here. On arrival the patient was found to have a temperature greater than 103 and quite confused only knew who she was. Workup was done and patient was given acetaminophen a liter of fluid and an antibiotic. After fever came down patient was much more of her normal self. The ER doctor also had a CT scan of the head chest x-ray done. There was no unusual findings except for age related. Also noted patient is normally on room air but it required 2 L by EMS as her saturations remained in the low 90s, we have continued this here in the ER. Also noted the patient is a diabetic and since she has become ill her blood sugars have become wildly variable and much higher per the son . Also noting that the patient has elevated creatinine and BUN. Patient also received Vanco and Zosyn in the emergency room., Having conferred with the ER physician do not feel that this is stroke related. But is due to an infection. Source of the infection is not fully clear as to the urinary tract is does not seem to be that severe. But patient also requiring oxygen which she never had before. I do agree with the emergency room physician I will except the patient and admit to the floor to continue antibiotic. Then also to reevaluate in case MRI of the brain is needed. Hospital Course Hospital Course Hospital Course: 79-year-old female with history of heart failure with preserved action, diabetes, gout, who presented to the ER with confusion and fever. Met criteria for sepsis with suspected UTI. Blood cultures turn positive for Pseudomonas. Did well during admission. Stable to discharge to therapy for further management. Has been accepted at [facility] for further rehab. Problems addressed as follows: Sepsis, resolved Encephalopathy, resolved Pseudomonas bacteremia H/o mitral valve ring - Initial VBG with normal blood gas 7.38, pCO2 36. Initial urine was abnormal. Blood cultures and urine cultures obtained. Urine culture ultimately did not grow any pathogens. Blood cultures however grew Pseudomonas, but also appear to have grown some additional pathogen's. Concerning for contaminant versus true bacteremia. Repeat blood cultures negative. Patient's symptoms have improved with treatment for infection. Initially treated with cefepime, saw gradual improvement. Transition to Levaquin for ease of dosing at discharge to cover for bacteremia. White count has normalized. Patient has remained afebrile. On workup, only other abnormal finding was patient's gallbladder on CT of abdomen pelvis had some wall thickening but she has no right upper quadrant pain on exam. Would benefit from outpatient follow-up with surgery for further management. Therapy evaluated due to patient's weakness and debility, recommended placement to rehab for further improvement in her strength, gait, mobility. Patient and family agreeable. Son to transport patient to rehab on day of discharge. Acute exacerbation of heart failure preserved ejection fraction History of CABG x 5 #Elevated troponin - BNP elevated 8200. Initial troponin 0.03. She was initiated on Bumex with improvement. Transition to oral diuresis for continued treatment at discharge. Cardiology was consulted, echo obtained showing no wall motion abnormalities. Suspect elevation in troponin is demand ischemia from her acute heart failure preserved ejection fraction. Has a history of known coronary artery disease with CABG. Cardiology recommends further management as an outpatient with ischemic eval. Continue aspirin 81 mg daily for CAD and metoprolol daily. Blood pressure appears well-controlled during admission. LDL goal less than 55, 37 on admission. On low intensity statin. - The patient is status post mitral valve ring with a preserved ejection fraction. In light of bacteremia, discussion with care team to consider SHAYLA if blood cultures remained positive. As they were negative, no SHAYLA deemed necessary. Diabetes: Unknown her level of control for diabetes, reportedly on OmniPod prior to arrival to the hospital. A1C 6.9. Required 2 to 20 units of insulin during admission. Glucoses ranged from 80-300. Would recommend fingersticks ACHS upon arrival and once daily insulin glargine 8 units in the morning along with low intensity sliding scale. Consider uptitrating glargine over the next few days if morning glucoses remain above 150. Close monitoring for further adjustment. Would hold on metformin or an SGLT-2 due to her kidney dysfunction and recent infection. Anemia: Hemoglobin remained low between 9 and 10, consistent with chronic anemia. Platelets stable in the 130s. Suspected CKD: Creatinine 1.8-2.2 during admission. This appears to be patient's baseline. We do not have any historical data to compare to. Recommend repeat BMP and CBC in 1 week for comparison and to monitor for stability. Right foot pain: Complaining of pain in right foot on morning of discharge. States that it is hard since she fell. X-ray obtained, no fracture noted. Suspect secondary to fall, bruise, arthritis. Tylenol as needed Total time spent on discharge 35 minutes in counseling, documentation, chart review, and direct care with patient. Exam Data for Last 24 hours Vital signs and Labs for Last 24 Hours: Temp Pulse Resp BP Pulse Ox O2 Del Method O2 Flow Rate 97.9 F 70 16 139/57 L 97 Room Air 1 06/25/24 20:00 06/25/24 20:00 06/25/24 20:00 06/25/24 20:00 06/25/24 20:00 06/25/24 23:00 06/24/24 10:32 Laboratory Results - last 24 hr 06/25/24 06:02: WBC 5.9, RBC 2.75 L, Hgb 9.0 L, Hct 27.0 L, MCV 98.0, MCH 32.8 H , MCHC 33.5, RDW 14.8, Plt Count 135 L, MPV 9.2, Neut % (Auto) 73.5, Lymph % (Auto) 12.7, O'Brien % (Auto) 9.1, Eos % (Auto) 4.0, Baso % (Auto) 0.7, Neut # (Auto) 4.4, Lymph # (Auto) 0.8, O'Brien # (Auto) 0.5, Eos # (Auto) 0.2, Baso # (Auto) 0.0, Sodium 136, Potassium 3.4 L, Chloride 108 H, Carbon Dioxide 19 L, Anion Gap 12.4, BUN 53 H, Creatinine 2.20 H, Estimated Creat Clear 26, Estimated GFR 21 L, Est GFR ( Amer) 26 L, Glucose 80, Calcium 7.5 L 06/25/24 11:38: POC Glucose 338 H* 06/25/24 15:57: POC Glucose 302 H* I & O for Last 24 hours: Intake & Output 06/22/24 06/23/24 06/24/24 06/25/24 23:59 23:59 23:59 23:59 Intake Total 460 / 820 950 / 1050 890 / 890 Output Total 550 / 550 775 / 775 1025 / 1025 Balance -90 / 270 175 / 275 -135 / -135 Weight 79.197 kg 81.873 kg 81.919 kg Microbiology Reports for the Last 24 Hours: Microbiology 06/23/24 02:45 Blood Blood Culture - Preliminary 06/24/24 09:41 Blood Blood Culture - Preliminary NO GROWTH AFTER 24 HOURS 06/24/24 09:36 Blood Blood Culture - Preliminary NO GROWTH AFTER 24 HOURS Constitutional Constitutional: no acute distress, average body habitus, chronically ill appearing and cooperative *Routine HEENT Exam Head: Present normocephalic and atraumatic ENT: Present mucous membranes moist *Routine Neck Exam Neck: Present supple, full ROM and normal carotid upstroke; Absent JVD, carotid bruit or lymphadenopathy *Routine Respiratory Exam Respiratory: Present CTA bilaterally, normal respiratory effort, able to speak in complete sentences and symmetric chest movement; Absent respiratory distress, rhonchi, wheezes or crackles *Routine Cardiovascular Exam Cardiovascular: Present RRR, Normal S1, Normal S2 and murmur; Absent gallop *Routine Abdominal Exam Abdominal: Present soft and normoactive bowel sounds; Absent tenderness, distended or organomegaly *Routine Rectal Exam Patient deferred: visual exam *Routine Exam Patient deferred: external exam *Routine Extremities Exam Extremities: Present pulses intact and normal capillary refill; Absent cyanosis, clubbing or edema Comments: Right jack spooler tender on right lateral aspect along fifth metatarsal, no swelling *Routine Skin Exam Skin: Present intact and warm; Absent erythema *Routine Neurological Exam Neurological: Present alert, oriented X3, CN II-XII intact and moving all extremities; Absent sensory deficit, motor deficit or altered mental status Comments: Forgot that I was Dr. Graves however. Concern for short-term memory recall deficit Routine Psychiatric Exam Psychiatric: Present normal affect Results Data Completed and Pending Labs on day of discharge: Labs from last 24 hours 06/25/24 06/25/24 06/25/24 15:57 11:38 06:02 WBC 5.9 RBC 2.75 L Hgb 9.0 L Hct 27.0 L MCV 98.0 MCH 32.8 H MCHC 33.5 RDW 14.8 Plt Count 135 L MPV 9.2 Neut % (Auto) 73.5 Lymph % (Auto) 12.7 O'Brien % (Auto) 9.1 Eos % (Auto) 4.0 Baso % (Auto) 0.7 Neut # (Auto) 4.4 Lymph # (Auto) 0.8 O'Brien # (Auto) 0.5 Eos # (Auto) 0.2 Baso # (Auto) 0.0 Sodium 136 Potassium 3.4 L Chloride 108 H Carbon Dioxide 19 L Anion Gap 12.4 BUN 53 H Creatinine 2.20 H Estimated Creat Clear 26 Estimated GFR 21 L Est GFR ( Amer) 26 L Glucose 80 POC Glucose 302 H* 338 H* Calcium 7.5 L Preliminary micro results at discharge 06/23/24 02:45 Blood Culture - Preliminary Blood 06/24/24 09:41 Blood Culture - Preliminary Blood NO GROWTH AFTER 24 HOURS 06/24/24 09:36 Blood Culture - Preliminary Blood NO GROWTH AFTER 24 HOURS DS: Diagnosis Discharge Diagnosis (1) Sepsis: Status: Resolved Code(s): A41.9 - Sepsis, unspecified organism (2) Urinary tract infection: Status: Acute Code(s): N39.0 - Urinary tract infection, site not specified Qualifiers: Hematuria presence: without hematuria Urinary tract infection type: acute cystitis Qualified Code(s): N30.00 - Acute cystitis without hematuria (3) Encephalopathy acute: Status: Resolved Code(s): G93.40 - Encephalopathy, unspecified (4) Fever: Status: Acute Code(s): R50.9 - Fever, unspecified Qualifiers: Fever type: unspecified Qualified Code(s): R50.9 - Fever, unspecified (5) (HFpEF) heart failure with preserved ejection fraction: Status: Acute Code(s): I50.30 - Unspecified diastolic (congestive) heart failure Qualifiers: Heart failure chronicity: acute Qualified Code(s): I50.31 - Acute diastolic (congestive) heart failure (6) Low oxygen saturation: Status: Acute Code(s): R79.81 - Abnormal blood-gas level (7) Kidney dysfunction: Status: Acute Code(s): N28.9 - Disorder of kidney and ureter, unspecified (8) Diabetes mellitus: Status: Acute Code(s): E11.9 - Type 2 diabetes mellitus without complications Qualifiers: Chronic kidney disease stage: stage 2 (mild) Diabetes mellitus compli cation detail: with chronic kidney disease Diabetes mellitus complication status: with kidney complications Diabetes mellitus prison insulin use: with terminal block assembler use Diabetes mellitus type: type 2 Qualified Code(s): E11.22 - Type 2 diabetes mellitus with diabetic chronic kidney disease; N18.2 - Chronic kidney disease, stage 2 (mild); Z79.4 - continuous churn buttermaker (current) use of insulin Meds Home Medications and Allergies Home Medications ?Medication ?Instructions ?Recorded ?Confirmed ?Type acetaminophen 325 mg tablet 650 mg (2 x 325 mg) PO Q4HP PRN 06/25/24 Rx Fever Or Mild Pain (1-3) 30 days #120 tabs allopurinol 300 mg tablet 300 mg PO DAILY 30 days #30 tabs 06/25/24 Rx aspirin 81 mg tablet,delayed 81 mg PO DAILY 30 days #30 tabs 06/25/24 Rx release atorvastatin 10 mg tablet 10 mg PO HS 30 days #30 tabs 06/25/24 Rx levofloxacin 750 mg tablet 750 mg PO 1100 6 days #6 tabs 06/25/24 Rx linaclotide 72 mcg capsule 72 mcg PO DAILY PRN constipation 06/25/24 Rx (Linzess) 30 days #30 caps metoprolol succinate 25 mg 12.5 mg (1/2 x 25 mg) PO DAILY 30 06/25/24 Rx tablet,extended release 24 hr days #15 tabs pantoprazole 40 mg tablet,delayed 40 mg PO HS 30 days #30 tabs 06/25/24 Rx release furosemide 40 mg tablet 40 mg PO DAILY #30 tabs 06/26/24 Rx insulin glargine 100 unit/mL (3 8 unit (0.08 mL) SQ DAILY #15 mL 06/26/24 Rx mL) subcutaneous pen (Lantus Solostar U-100 Insulin) insulin lispro 100 unit/mL 0 unit (0 mL) SQ ACHS #0 mL 06/26/24 Rx subcutaneous solution (Humalog U-100 Insulin) New Prescriptions to Start Prescriptions: Jose Daniel Cavanaugh allopurinol Star,Jose Daniel aspirin Star,Jose Daniel atorvastatin Star,Jose Daniel furosemide Jose Daniel Graves insulin glargine [Lantus Solostar U-100 Insulin] Jose Daniel Graves levofloxacin Jose Daniel Graves linaclotide [Linzess] Jose Daniel Graves metoprolol succinate Star,Jose Daniel pantoprazole Jose Daniel Graves Allergies Allergy/AdvReac Type Severity Reaction Status Date / Time No Known Allergies Allergy Verified 06/23/24 02:41 Discharge Plan Disposition Patient Disposition: er SNF Condition: Fair Discharge Order Discharge Orders: Discharge Order (Routine); Ordered 06/26/24 Ordered By: Jose Daniel Graves Follow up Plan Follow up with: Brian Strickland MD [Staff Physician] - Enter time for follow up Lucian Reyes MD [Staff Physician] - Enter time for follow up Prescriptions/Medication Reconciliation: New atorvastatin 10 mg Tablet 10 mg PO HS 30 Days Qty: 30 0RF aspirin 81 mg Tablet,Delayed Release (Dr/Ec) 81 mg PO DAILY 30 Days Qty: 30 0RF acetaminophen 325 mg Tablet 650 mg PO Q4HP PRN (Reason: Fever Or Mild Pain (1-3)) 30 Days Qty: 120 0RF levofloxacin 750 mg Tablet 750 mg PO 1100 6 Days Qty: 6 0RF Rx Instructions: last dose due 07/02/24 furosemide 40 mg tablet 40 mg PO DAILY Qty: 30 0RF insulin glargine [Lantus Solostar U-100 Insulin] 100 unit/mL (3 mL) insulin pen 8 unit SQ DAILY Qty: 15 0RF insulin lispro [Humalog U-100 Insulin] 100 unit/mL Solution 0 unit SQ ACHS Qty: 0 0RF Continued pantoprazole 40 mg tablet,delayed release (DR/EC) 40 mg PO HS 30 Days Qty: 30 0RF allopurinol 300 mg tablet 300 mg PO DAILY 30 Days Qty: 30 0RF metoprolol succinate 25 mg tablet extended release 24 hr 12.5 mg PO DAILY 30 Days Qty: 15 0RF Changed Linzess 72 mcg capsule 72 mcg PO DAILY PRN (Reason: constipation) 30 Days Qty: 30 0RF Patient Comments: TAKE 1 CAPSULE BY MOUTH EVERY DAY Problem Reconciliation Problems Reviewed?: Yes Patient Discharge Instructions ACTIVITY: Continue current activity and Ambulate as tolerated DIET: continue same diet Patient Instructions: DI for Urinary Retention in Women, DI for Altered Mental Status, Catheter-Associated Urinary Tract Infection Print Language: Swedish Providers Primary Care Provider: Provider,Referral Admit Provider: Jose Daniel Graves Attending Provider: Jose Daniel Graves
[2024-06-26 04:00] VITALS: BP 142/62; PULSE 78; RESP 16; TEMP 36.7; O2SAT 98; BMI 26.6
--- NOTE | 2024-06-26 05:31 | XR_ITS ---
PROCEDURE INFORMATION: Exam: XR Right Foot Exam date and time: 06/26/2024 5:57 AM Age: 79 years old Clinical indication: Pain; Foot; Right; Additional info: Foot pain along fifth metatarsal TECHNIQUE: Imaging protocol: Radiologic exam of the right foot. Views: 1 or 2 views. COMPARISON: No relevant prior studies available. FINDINGS: Bones/joints: The patient is osteopenic. No obvious fracture or dislocation is identified. Flexion deformities of the toes are identified. Soft tissues: Normal. IMPRESSION: The patient is osteopenic. No obvious fracture or dislocation is identified.
[2024-06-26] MEDS: humaLOG 100 UNITS/ML 10ML VIAL (SSI) SUBCUT (06:09)
[2024-06-26 06:12] LABS: POC Glucose,Bedside 380 (70-110)
[2024-06-26 06:45] VITALS: PULSE 74; O2SAT 94
[2024-06-26] MEDS: IPRATROPIUM/ALBUTEROL 3 ML NEB IH (06:47)
[2024-06-26 07:12] LABS: Anion Gap 22.2 mEq/L (5-15); Blood Urea Nitrogen 49 mg/dl (7-17); Calcium 7.9 mg/dl (8.4-10.2); Carbon Dioxide 12 mmol/L (22.0-30.0); Chloride 107 mmol/L (98-107); Creatinine Clearance Estimated 25 mL/min (50-200); Estimated Glomerular Filt Rate 20 ml/min (>60); GFR (African American) 25 ML/MIN (>60); Glucose 335 mg/dl (74-100); Potassium 5.2 mmoL/L (3.5-5.1); Sodium 136 mmol/L (136-145)
[2024-06-26 07:15] LABS: Hemoglobin A1C 6.9 % (4.0-6.0)
[2024-06-26 07:42] VITALS: BP 133/51; PULSE 82; RESP 18; TEMP 36.8; O2SAT 96
[2024-06-26] MEDS: INSULIN GLARGINE 100 UNITS/ML 3ML FLEXPEN 8 UNIT SUBCUT (08:09)
[2024-06-26] MEDS: ENOXAPARIN 30MG/0.3ML SYRINGE 30 MG SUBCUT (08:11)
[2024-06-26] MEDS: ASPIRIN EC 81MG TABLET 81 MG PO (08:12)
[2024-06-26] MEDS: METOPROLOL SUCCINATE XL 25MG TABLET 12.5 MG PO (08:13)
[2024-06-26] MEDS: 0.9 % SODIUM CHLORIDE 1000ML 500 ML IV (08:18)
[2024-06-26] MEDS: levoFLOXacin 750 MG TABLET PO (09:34)
--- NOTE | 2024-06-26 10:11 | EXP.CARD.PN ---
Subjective Subjective Date: 06/26/24 Time: 10:15 Principal diagnosis: HFpEF Interval history: This is an 79-year-old female who was admitted to the hospital with an altered mental status stemming from a UTI. The patient also had acute HFpEF with an elevated troponin. She was diuresed with IV Bumex and later switched over to oral Bumex. She has tolerated this well. This morning she denies any chest pain or pressure. She denies any shortness of breath or edema. She denies any fever, chills, nausea, vomiting, diarrhea, PND orthopnea. The patient states that she is ready to be discharged home. Exam Data for Last 24 hours Vital signs and Labs for Last 24 Hours: Temp Pulse Resp BP Pulse Ox O2 Del Method O2 Flow Rate 98.3 F 82 18 133/51 L 96 Room Air 1 06/26/24 07:42 06/26/24 07:42 06/26/24 07:42 06/26/24 07:42 06/26/24 07:42 06/26/24 09:00 06/24/24 10:32 Laboratory Results - last 24 hr 06/25/24 11:38: POC Glucose 338 H* 06/25/24 15:57: POC Glucose 302 H* 06/26/24 05:51: POC Glucose 380 H* 06/26/24 06:24: Sodium 136, Potassium 5.2 H D, Chloride 107, Carbon Dioxide 12 L, Anion Gap 22.2 H, BUN 49 H, Creatinine 2.30 H, Estimated Creat Clear 25, Estimated GFR 20 L, Est GFR ( Amer) 25 L, Glucose 335 H, Hemoglobin A1c 6.9 H, Calcium 7.9 L I & O for Last 24 hours: Intake & Output 06/23/24 06/24/24 06/25/24 06/26/24 23:59 23:59 23:59 23:59 Intake Total 460 / 820 950 / 1050 890 / 1190 660 / 660 Output Total 550 / 550 775 / 775 1025 / 1025 0 / 0 Balance -90 / 270 175 / 275 -135 / 165 660 / 660 Weight 174 lb 9.6 oz 180 lb 8 oz 180 lb 9.6 oz 175 lb 11.2 oz Microbiology Reports for the Last 24 Hours: Microbiology 06/24/24 09:41 Blood Blood Culture - Preliminary NO GROWTH AFTER 48 HOURS 06/24/24 09:36 Blood Blood Culture - Preliminary NO GROWTH AFTER 48 HOURS 06/23/24 02:45 Blood Blood Culture - Preliminary Pseudomonas aeruginosa 06/24/24 05:31 Urine,Clean Catch Urine Culture - Final No growth. 06/23/24 03:16 Blood Blood Culture - Final Pseudomonas aeruginosa Constitutional Constitutional: no acute distress and average body habitus *Routine HEENT Exam Head: Present normocephalic and atraumatic ENT: Present mucous membranes moist *Routine Neck Exam Neck: Present supple, full ROM and normal carotid upstroke; Absent JVD, carotid bruit or lymphadenopathy *Routine Respiratory Exam Respiratory: Present CTA bilaterally, normal respiratory effort, able to speak in complete sentences and symmetric chest movement *Routine Cardiovascular Exam Cardiovascular: Present RRR, Normal S1, Normal S2 and murmur; Absent gallop *Routine Abdominal Exam Abdominal: Present soft and normoactive bowel sounds; Absent tenderness, distended or organomegaly *Routine Extremities Exam Extremities: Present pulses intact and normal capillary refill; Absent cyanosis, clubbing or edema *Routine Skin Exam Skin: Present intact and warm; Absent erythema *Routine Neurological Exam Neurological: Present alert, oriented X3 and CN II-XII intact; Absent sensory deficit or motor deficit Routine Psychiatric Exam Psychiatric: Present normal affect Progress Note: A&P Assessment and plan (1) (HFpEF) heart failure with preserved ejection fraction: Status: Acute (2) Elevated troponin: Status: Acute (3) Coronary artery disease: Status: Acute (4) History of five vessel coronary artery bypass: Status: Acute (5) H/O mitral valve repair: Status: Acute (6) Sepsis: Status: Resolved (7) Urinary tract infection: Status: Acute (8) Encephalopathy acute: Status: Resolved (9) Fever: Status: Acute (10) Kidney dysfunction: Status: Acute (11) Diabetes mellitus: Status: Acute Assessment and Plan Assessment and Plan for All Diagnoses:: Plan: 1. Patient was admitted to the hospital with altered mental status. She did have a fever at the time of her admission as well. She is currently being treated for a UTI. Will defer management of this to the hospital. 2. The patient also had an acute exacerbation of HFpEF. The patient was diuresed with IV Lasix and switched over to oral Lasix. She is tolerating well. 3. Her creatinine is stable at 2.3 today. 4. The patient did have a slightly elevated troponin. She denied any chest pain or pressure. No wall motion abnormalities noted on echocardiogram. This is likely demand ischemia from her acute HFpEF. However she does have a history of known coronary artery disease with CABG. We do recommend an outpatient ischemic evaluation once she is discharged from the hospital. 5. Continue aspirin 81 mg daily for coronary artery disease. 6. Continue metoprolol for coronary artery disease. 7. Her blood pressure is well-controlled. 8. Her LDL goal is less than 55. Her LDL is 37. She is now on a statin. 9. The patient is status post mitral valve ring with a preserved ejection fraction. The patient does have bacteremia with Pseudomonas on one of her blood cultures. SHAYLA was recommended by the hospitalist. However Dr. echols does not think proceeding with SHAYLA is indicated at this time. She has not had any persistently positive blood cultures at this point and her mitral valve ring has no concerns for vegetation on the TTE. However, if she has persistently positive blood cultures despite antibiotics then we can consider SHAYLA in the future per Dr. Echols. 10. No further recommendations at this time from a cardiac standpoint. The patient can be discharged home today from a cardiac standpoint on the following cardiac medications: Aspirin 81 mg daily, atorvastatin 10 mg daily, Lasix 20 mg daily, metoprolol 12.5 mg daily. 11. She will need to follow-up in cardiology clinic in 1 to 2 weeks on an outpatient basis. She does have a chemical dependency counselor she sees regularly. Thank you for the opportunity to help participate in the care of this patient. All recommendations and orders are per Dr. Reyes.
[2024-06-26 22:02] LABS: POC Glucose,Bedside 93 (70-110)
--- NOTE | 2024-06-27 11:18 | CARE MANAGER ---
Spoke with patient related to hospital discharge. She states she is doing well, just sore. New medications are getting picked up today. She is aware of follow up appointments. Denies questions or concerns. MANASA Cash
[2024-06-27 14:58] LABS: POC Glucose,Bedside 225 (70-110)
== END 2024-06-26 11:27 | disposition home health service (06) | DRG 871 ==
LOC: ER 02:34 → 2ND 04:53
PROVIDERS: Nurse Practitioner Family; Student in an Organized Health Care Education/Training Program; Admitting Provider Internal Medicine Adolescent Medicine; Emergency Provider Emergency Medicine; Visit Provider Internal Medicine Adolescent Medicine
DX: A41.52 Sepsis due to Pseudomonas (principal); I50.31 Acute diastolic (congestive) heart failure; G93.40 Encephalopathy, unspecified; N30.00 Acute cystitis without hematuria; E11.22 Type 2 diabetes mellitus with diabetic chronic kidney disease; N18.2 Chronic kidney disease, stage 2 (mild); Z79.4 Long term (current) use of insulin; R79.89 Other specified abnormal findings of blood chemistry; I25.10 Atherosclerotic heart disease of native coronary artery without angina pectoris; Z95.1 Presence of aortocoronary bypass graft; D64.9 Anemia, unspecified; M79.671 Pain in right foot
CPT/HCPCS: 36415; 70450; 70496; 70498; 71045; 71250; 73620; 74177; 76705; 80048; 80053; 80061; 80307; 80320; 81001; 82803; 82962; 83036; 83605; 83735; 83880; 84484; 85007; 85025; 85610; 85730; 87040; 87077; 87086; 87186; 87265; 87486; 87581; 87632; 87635; 93005; 93306; 94640; 97110; 97116; 97163; 97166; 97530; 99291; J0131; J0692; J1650; J1939; J2543; J3475; J7030; J7120; J7620; Q9967